=== PATIENT | female | born 1960 | race Caucasian/White ===

== ENCOUNTER 2020-08-05 19:18 | Emergency (ER) | payer SELFPAY ==
[2020-08-05 19:20] VITALS: BP 157/83; PULSE 100; RESP 20; TEMP 36.9; O2SAT 98
--- NOTE | 2020-08-05 19:42 | ED.DENTAL ---
HPI - Dental/Oral General Chief complaint: Dental/Oral Stated complaint: Infection in mouth Time Seen by Provider: 08/05/20 19:20 Source: patient Mode of arrival: ambulatory Limitations: no limitations History of Present Illness HPI Narrative: 59-year-old woman comes in today complaining of 2 days of pain in her lower jaw beneath her front teeth. Patient states that there was swelling in her gums and she has pain throughout her jaw causes her to have headache. She states it is difficult for her to eat because of the discomfort. She has had no fever, vomiting or difficulty swallowing. She states that the swollen area in her gums popped earlier today and pus came out. MD Complaint: tooth pain Teeth map: 1. Apical lesion Onset (ago): day(s) (2) Duration: constant Severity: severe Relieving factors: nothing Exacerbating factors: chewing and cold Context: poor dental care Associated symptoms: gum swelling Treatment prior to arrival: oral analgesic Related Data Allergies Allergy/AdvReac Type Severity Reaction Status Date / Time No Known Allergies Allergy Verified 08/05/20 19:32 Review of Systems Review of Systems: All systems reviewed & are unremarkable except as noted in HPI and below Constitutional: Constitutional: Denies chills and Denies fever(s) ENT: Denies dysphagia, Denies nasal congestion and Denies sore throat Musculoskeletal: Musculoskeletal: Denies arthralgias and Denies joint swelling Integumentary/Breasts: Skin/Breast: Denies pruritus, Denies erythema and Denies rash Neurologic: Reports headache(s) and Denies focal weakness Hematologic/Lymphatic: Hematologic/Lymphatic: Denies easy bleeding and Denies easy bruising Allergic/Immunologic: Allergic/Immunologic: Reports lip swelling, Denies throat swelling and Denies tongue swelling [facility] Past Medical History Medical History (Updated 08/05/20 @ 19:54 by Pollo Potter MD) Mitral valve prolapse Tubal Surgical History Surgical History (Updated 08/05/20 @ 19:51 by Pollo Potter MD) History of Hx of tubal ligation Social History Social History Smoking status: Former smoker Substance use: never Living arrangements: with family Exam Const: General: healthy appearing and alert Orientation/consciousness: patient oriented x3 Limitations: no limitations Other: moderate acute distress. HENMT: Ears: external ears normal, TM's normal bilaterally and EAC's normal General nose exam: Normal nares present Face and sinus: normal facial exam Mouth: Yes moist mucous membranes Throat: posterior oropharynx normal Other: buccal gingival swelling of the lower incisors. Tenderness palpation of the chin and lower lip. Minimal external swelling and no external erythema. Eyes: Conjunctivae: conjunctivae normal Pupils: Equal, round and reactive pupils present EOM: EOMs intact bilaterally Resp: Effort & Inspection: normal respiratory effort and not labored Auscultation: clear to auscultation bilaterally, no rales, no rhonchi and no wheezes Cardio: Rate: regular rate Rhythm: regular rhythm Heart sounds: no murmurs Skin: General skin exam: normal color, no jaundice and no pallor Rashes: no rashes Neuro: General: patient oriented x3, moves all extremities, no focal motor deficits and CN's II-XI intact bilaterally Speech: normal speech Gait exam (Neuro): Normal gait present Extrem: General: normal to inspection and no clubbing, cyanosis or edema Psych: Appearance: grossly normal and well kempt Mental Status: mental status grossly normal Affect: normal affect Attitude: cooperative Thought content: Yes Normal thought content present Course Vital Signs Vital signs: Vital Signs Temperature 36.9 C 08/05/20 19:20 Pulse Rate 100 08/05/20 19:20 Respiratory Rate 20 08/05/20 19:20 Blood Pressure 157/83 H 08/05/20 19:20 Pulse Oximetry 98 08/05/20 1
[2020-08-05 20:05] VITALS: BP 144/72; PULSE 102; RESP 18; O2SAT 98
== END 2020-08-05 20:07 | disposition home or self-care (01) ==
PROVIDERS: Emergency Provider Emergency Medicine
DX: K04.7 Periapical abscess without sinus (principal)
CPT/HCPCS: 99283

== ENCOUNTER 2020-11-13 11:44 | Outpatient (NON) | payer SELFPAY | END 2020-11-13 11:45 | disposition home or self-care (01) | LOC: CHSLAB 11:46 | PROVIDERS: Visit Provider Nurse Practitioner Family | DX: N39.0 Urinary tract infection, site not specified (principal) | CPT/HCPCS: 87077; 87086; 87088; 87186 ==

== ENCOUNTER 2020-11-26 10:29 | Outpatient (CLI) | payer SELFPAY ==
[2020-11-26 10:50] LABS: Basophils Absolute Auto 0.06 K/mm3 (0.00-0.10); Basophils Percent Auto 0.5 % (0.0-1.0); Eosinophils Absolute Auto 0.11 K/mm3 (0.02-0.50); Hematocrit 41.4 % (35.0-49.0); Hemoglobin 13.9 g/dL (12.0-15.0); Immature Granulocyte Absolute 0.06 K/mm3 (0.00-0.00); Immature Granulocyte Percent A 0.5 % (0.0-0.0); Lymphocytes Absolute Auto 2.46 K/mm3 (1.10-4.50); Lymphocytes Percent Auto 21.3 % (18.0-42.0); Mean Corpuscular HGB Conc 33.6 g/dL (32.0-36.0); Mean Corpuscular Hemoglobin 31.4 pg (27.0-31.0); Mean Corpuscular Volume 93.7 fL (78.0-102.0); Mean Platelet Volume 9.5 fl (9.2-11.8); Monocytes Absolute Auto 0.64 K/mm3 (0.10-0.90); Monocytes Percent Auto 5.5 % (2.0-11.0); Neutrophils Absolute Auto 8.2 K/mm3 (1.7-7.2); Neutrophils Percent Auto 71.2 % (50.0-70.0); Platelet Count Result 249 K/mm3 (150-420); Red Blood Count 4.42 M/mm3 (4.20-5.40); Red Cell Distribution Width 13.7 % (11.6-14.4); White Blood Count 11.6 K/mm3 (4.8-10.8)
[2020-11-26 11:46] LABS: Alanine Aminotransferase 36 U/L (14-59); Albumin Level 4.4 g/dL (3.4-5.0); Alkaline Phosphatase 101 U/L (46-116); Anion Gap 12 mmol/L (8-16); Aspartate Amino Transferase 18 U/L (15-37); Bilirubin,Total 0.5 mg/dL (0.00-1.00); Blood Urea Nitrogen 17 mg/dL (7-18); Carbon Dioxide 26 mmol/L (21-32); Chloride 103 mmol/L (98-108); Cholesterol 248 mg/dL (0-200); Estimated Glomerular Filt Rate > 60; Glucose 89 mg/dL (70-99); HDL Direct 55 mg/dL (40-60); LDL Cholesterol Calculated 182 mg/dL (<130); Osmolality Calculated 292 mOsm/kg (285-295); Sodium 141 mmol/L (136-145); Total Protein 7.5 g/dL (6.4-8.2); Triglycerides 55 mg/dL (0-150)
== END 2020-11-26 10:30 | disposition home or self-care (01) ==
LOC: CHSLAB 10:33
PROVIDERS: PCP Family Medicine; Visit Provider Nurse Practitioner Family
DX: I34.1 Nonrheumatic mitral (valve) prolapse (principal); Z20.2 Contact with and (suspected) exposure to infections with a predominantly sexual mode of transmission; N39.0 Urinary tract infection, site not specified; G43.009 Migraine without aura, not intractable, without status migrainosus
CPT/HCPCS: 36415; 80053; 80061; 85025; 87491; 87591; 87661

== ENCOUNTER 2021-04-22 11:37 | Emergency (ER) | payer SELFPAY ==
[2021-04-22 11:54] VITALS: BP 144/94; PULSE 86; RESP 18; TEMP 36.1; O2SAT 99
--- NOTE | 2021-04-22 12:02 | ED.EXTPRO ---
HPI - Extremity Problem General Chief complaint: Extremity Problem,Nontraumatic Stated complaint: fell on ice on back/leg pain on 04/21/21 Source: patient and RN notes reviewed Mode of arrival: ambulatory Limitations: no limitations History of Present Illness HPI Narrative: Patient fell on the ice 2 days ago. And now has pain in her bilateral calves. she said she had pain and bilateral calves this morning but since then it has completely resolved. She denies any erythema or swelling in her lower extremities. A friend talked to her about maybe having a blood clot she wanted to get that evaluated. She also has signs of COVID. She had body aches, cough, headache, chills, sore throat. She denies nausea vomiting. MD Complaint: extremity pain Onset (ago): day(s) (2) Pain Consistency: intermittent Location: left, right and lower extremity Quality: aching Radiation: none Relieving factors: nothing Exacerbating factors: nothing Associated symptoms: denies other symptoms Related Data Home Medications Medication Instructions Recorded Confirmed No Home Medications 04/22/21 04/22/21 Allergies Allergy/AdvReac Type Severity Reaction Status Date / Time No Known Allergies Allergy Verified 04/22/21 12:02 Review of Systems Review of Systems: See HPI for other symptoms of COVID. All systems reviewed & are unremarkable except as noted in HPI and below PMFSH Past Medical History Medical History Closed fracture of finger (11/16/15) Hordeolum eyelid (12/06/12) Mitral valve prolapse Perimenopausal disorder (05/11/12) Plantar fasciitis (05/11/12) Tubal Surgical History Surgical History H/O tubal ligation H/O: section History of appendectomy History of Hx of tubal ligation Social History Social History Smoking packs per day: 1 Smoking cigarettes per day: 20.0 Years smoked: 30 Smoking pack-years: 30.00 Smoking status: Former smoker Alcohol intake: current Alcohol use details: social Substance use: never Substance use type: does not use Additional living arrangements comments: with 2 sons Additional occupation/education comments: self-employed. Gender identity (if verbalized by the patient): Female Exam Const: General: healthy appearing and no acute distress Nutritional Appearance: well nourished Orientation/consciousness: patient oriented x3 Other: Female nurse in room during examination. HENMT: Head: normal to inspection Ears: external ears normal Eyes: Conjunctivae: conjunctivae normal Pupils: Equal, round and reactive pupils present EOM: EOMs intact bilaterally Neck: Neck: normal visual inspection Resp: Effort & Inspection: normal respiratory effort Auscultation: clear to auscultation bilaterally Cardio: Rate: regular rate Rhythm: regular rhythm GI: GI Palp: Yes Soft to palpation, No Tenderness to palpation present (GI) and No Guarding due to palpation present (GI) Auscultation: normal bowel sounds Back/Spine/Pelvis: Cervical Spine: cervical ROM normal Thoracic/Lumbar Spine: thoraco-lumbar ROM normal Skin: General skin exam: normal color Neuro: General: patient oriented x3, moves all extremities, no meningeal signs, no focal motor deficits and CN's II-XI intact bilaterally Speech: normal speech Gait exam (Neuro): Normal gait present Extrem: General: normal to inspection, capillary refill normal, no clubbing, cyanosis or edema, no pedal edema, no calf tenderness and normal gait Psych: Appearance: grossly normal and well kempt Mental Status: mental status grossly normal Affect: normal affect Attitude: cooperative Thought content: Yes Normal thought content present Course Vital Signs Vital signs: Vital Signs Temperature 36.1 C L 04/22/21 11:54 Pulse Rate 86 04/22
[2021-04-22 12:44] LABS: D Dimer 0.36 mg/L (0.19-0.50)
--- NOTE | 2021-04-22 12:55 | PC.NURSE ---
patient inpatient care manager rn in the room during assessment
[2021-04-22 13:27] LABS: SARS-CoV-2 RNA PCR Negative (Negative)
[2021-04-22 13:58] VITALS: BP 129/78; PULSE 78; RESP 16; O2SAT 98
== END 2021-04-22 13:59 | disposition home or self-care (01) ==
PROVIDERS: Emergency Provider Emergency Medicine; PCP Family Medicine
DX: Z20.822 Contact with and (suspected) exposure to COVID-19 (principal)
CPT/HCPCS: 36415; 85380; 99282; 99283; C9803; U0003; U0005

== ENCOUNTER 2022-05-09 15:45 | Outpatient (NON) | payer SELFPAY ==
[2022-05-09 15:55] LABS: Appearance Urine Clear (Clear); Bilirubin Urine Negative (Negative); Blood Urine 1+ (Negative); Glucose Urine UA Negative (Negative); Ketones Urine Negative (Negative); Leukocyte Esterase Ur 3+ LEU/UL (Negative); Nitrate Urine Negative (Negative); Protein Urine Negative (Negative); Specific Grav Ur <= 1.005 (1.010-1.020); Urobilinogen Urine 0.2 mg/dL (0.2-1.0)
[2022-05-09 16:11] LABS: Add Urine Microscopic? YES; Bacteria Urine 2+ /hpf; Color Urine Light Yellow (Yellow); RBC Urine 0-2 /hpf (0-2); Squamous Epithelial Cell Urine Few /hpf (Few); WBC Urine 16-20 /hpf (0-3)
== END 2022-05-09 15:46 | disposition home or self-care (01) ==
LOC: CHSLAB 15:46
PROVIDERS: PCP Nurse Practitioner Family; Visit Provider Nurse Practitioner Family
DX: R39.9 Unspecified symptoms and signs involving the genitourinary system (principal)
CPT/HCPCS: 81001; 87077; 87086; 87088; 87186

== ENCOUNTER 2024-06-13 13:41 | Outpatient (CLI) | payer OTHER, SELFPAY ==
--- NOTE | 2024-06-13 13:50 | ECG_ITS ---
Test Date: 2024-06-13 14:01:40 Measurements Intervals [place] Rate: 79 P: 74 WA: 124 QRS: 69 QRSD: 101 T: 66 QT: 395 QTc: 453 Interpretive Statements SINUS RHYTHM INCOMPLETE RIGHT BUNDLE BRANCH BLOCK [90+ ms QRS DURATION, TERMINAL R IN V1/V2, 40+ ms S IN I/aVL/V4/V5/V6] No previous ECG available for comparison Electronically Signed On 06-14-2024 15:29:25 [employer] by Jacinta Kumar M.D.
--- OUTSIDE RECORDS SUMMARY | 2024-06-13 15:05 | XMS_ITS | CONTINUITY OF CARE DOCUMENT ---
Author Name melvin charles Address Unknown Organization [facility] Address [address] [place] [address] Phone [phone] Care Team Providers Care Director Surgical Name Role Phone Juan R Alaniz MD Unavailable JAYNE WHITLEY MD Unavailable JAYNE WHITLEY MD Unavailable [phone] PROBLEMS Condition Status Date Provider Notes Chest pain-type to be determined active Re Alaniz MD Mitral valve prolapse active Juan R Valdez ENCOUNTERS Date Type Provider Location Encounter Diag nosis - In-person encounter Office Visit Juan R Alaniz MD [facility] Office Chest pain-type to b e determinedMitral valve prolapse VITAL SIGNS Date Observation Value Provider Body Mass Index (Ratio) 24.09 kg/m2 Dayo Alaniz MD blood pressure, diastolic 68 mm[Hg] Us shaina Alaniz MD blood pressure, systolic 110 mm[Hg] Re Alaniz MD pulse rate 66 /min Juan R Alaniz MD oxygen saturation, oximetry 98 % Juan R Alaniz MD respiratory rate E&M 16 /min Juan R thomson MD weight E&M 136 [lb_av] Juan R Alaniz MD height E&M 63 [in_i] Juan R Alaniz MD ALLERGIES No Known Drug Allergies HISTORY OF MEDICATION USE No Known Medication SOCIAL HISTORY Date Observation Value Provider smoking/tobacco cess ation, patient education and counseling yes Juan R Alaniz MD social history E&M Patient is a former smoker. Smoking History: Gretel zayas is a former smoker. Juan R Alaniz MD social history reviewed E&M revi ewed - no changes required Juan R Alaniz MD smoking status Former smoker Juan R Alaniz MD FAMILY HISTORY Family Member Condition Father Family History of Co ronary Artery Disease: TREATMENT PLAN Date Name Performer New Patient printed and faxed to [facility] and PCP:Will check echo Juan R Alaniz MD Date Name Complete Echo
--- OUTSIDE RECORDS SUMMARY | 2024-06-13 15:05 | XMS_ITS | Clinical Summary ---
Author Organization [facility] Address Counts include [address] beds at [address] [facility] [place] [address] Care Team Providers Care Antique Repairer Name Role Phone None, Provider MD Primary Care Provider Unavaila ble Allergies Active Allergy Reactions Criticality Noted Date Comments Tamsulosin Shortness of Breath High 01/11/2023 Medications No known medications Social History Tobacco Use Types Packs/Day Years Used Date Smoking Tobacco: Former Cigarettes Smokeless Tobacco: Never Tobacco Cessation:Counseling Given: Not Answered Alcohol Use Standard Drinks/Week Comments Not Currently 0 (1 standard drink = 0.6 oz pur e alcohol) Comments No Sex and Gender Information Value Date Recorded Sex Assigned at Not on file Legal Sex Female 5:14 PM CDT Gender Identity Not on file Sexual Orientation Not on file Last Filed Vital Signs Vital Sign Reading Time Taken Comments Blood Pressure 127/68 01/11/2023 5:24 PM CDT Pulse 58 01/11/2023 5:24 PM CDT Temperature 36.4 C (97.5 F) 01/11/2023 3:14 PM CDT Respiratory Rate 16 01/11/2023 3:14 PM CDT Oxygen Saturation 100% 01/11/2023 6:00 PM CDT Inhaled Oxygen Concentration - - Weight 68.5 kg (151 lb) 01/11/2023 3:14 PM CDT Height 160 cm (5' 3 ) 01/11/2023 3:14 PM CDT Body Mass Index 26.75 01/11/2023 3:14 PM CDT Plan of Treatment Health Maintenance Due Date Last Done Comments Cervical Cancer Screening Pa p Smear (Age 30 to 64) Every 3 Years 1962 Colorectal Cancer Screening Colonoscopy (10 Years) 1962 Annual Physical 1965 Hepatitis C 1980 Cervical Cancer Screening Pa p with HPV Testing (Age 30 to 64) Every 5 Years 1992 Cervical Cancer Screening with HPV 1992 Mammogram Screening 2002 DTaP, Tdap and Td Vaccines ( 1 - Tdap) 04/14/2012 04/13/2012 Zoster Vaccines (1 of 2) 2012 COVID-19 Vaccine ( - 2023-2 5 season) 2023 Influenza Adult (#1) 2024 RSV Immunization or 60+ Years (1 - 1-dose 75+ series) 2037 Meningococcal B Vaccine Aged Out No l onger eligible based on patient's age to complete this topic Meningococcal Vaccine Aged Out No [place] tal eligible based on patient's age to complete this topic Pneumococcal Vaccine: Pediat rics (0 to 5 Years) and At-Risk Patients (6 to 64 Years) Aged Out No longer eligi ble based on patient's age to complete this topic RSV Immunizations Under 20 Months Aged Out No longer eligible based on patient's age to complete this topic Care Teams Antique Repairer Relationship Specialty Start Date End Date None, Provider, MD PCP - General UNKNOWN PHYSICIAN SPECIALTY 04/10/22
== END 2024-06-13 13:42 | disposition home or self-care (01) ==
LOC: CHSCARD 13:45
PROVIDERS: PCP Nurse Practitioner Family; Visit Provider Internal Medicine Cardiovascular Disease
DX: I34.1 Nonrheumatic mitral (valve) prolapse (principal); I45.19 Other right bundle-branch block
CPT/HCPCS: 93005

== ENCOUNTER 2024-06-27 07:57 | Outpatient (CLI) | payer OTHER, SELFPAY ==
--- OUTSIDE RECORDS SUMMARY | 2024-06-27 08:07 | XMS_ITS | Data Portability ---
Author Organization DIMITRI JADERodrigo [facility] Address [address] [place] [address] Assessment No assessment recorded. Plan of Treatment Reminders Order Date Submit Date Provider Last Modified By Organization Details Last Modified Time Details Appointments None recorded. Lab pap, IG + CT/NG/TV + reflex HPV (16+18) 2014 015 [facility], [address], [address], [place], [address], 5 16:41:30 RPR (rapid plasma reagin), serum 2014 015 [facility], [address], [address], [place], [address], 5 09:16:37 HBsAg (hepatitis B surface Ag), EIA, serum 2014 015 [facility], [address], [address], [place], [address], 5 09:16:37 hepatitis C Ab, signal-to-c utoff, serum or plasma 2014 015 [facility], [address], [address], [place], [address], 5 09:16:36 HIV (1+O+2) Ab, serum 2014 015 [facility], [address] [place] [address], [address], [place], [address], 5 09:16:36 iron + total iron-bindin g capacity (TIBC), serum 2014 015 [facility], [address], [address], [place], [address], 5 08:55:30 ferritin, serum or plasma 2014 015 [facility], [address], [address], [place], [address], 5 08:55:31 CBC 2014 015 [email or web address] 1 [facility], [address], [address], [place], [address], 5 11:59:11 lipid panel, serum 2014 [facility], [address] [place], [place] [address], [address], [place], [address], 5 11:59:11 TSH, serum or plasma 2014 015 [facility], [address], [address], [place], [address], 5 11:59:11 CMP, serum or plasma 2014 015 [facility] 1 [facility], [address], [address], [place], [address], 5 11:59:11 Referral gastroenter ologist referral 2014 015 [email or web address] Not available 5 10:13:39 Procedures None recorded. Surgeries None recorded. Imaging MAMMO, screening, digital, bilateral 2014 015 [email or web address] Not available 5 15:21:58 Medication Orders None recorded. Patient TargetsNo targets recorded. Patient Instructions Encounter Date Encounter Id Patient Instructions Last Modified By Organization Details Last Modified Time 06/28/2014 [id number] hemochromatosis: care instructions nsuthan Not available 06/28/2014 15:00:12 Take meds as prescribed Healthy diet/ exercise nsuthan Not available 06/28/2014 15:00:13 12/14/2014 [id number] learning about breast cancer screening [email or web address] Not available 12/14/2014 11:00:56 Reason for Referral Referring Physician: Ran Dial, Internal Medicine, Encounter Date: 06/28/2014 Results Created Date Observation Date Name Description Value Unit Range Abnormal Flag Note LastModifiedBy Organization Detail LastModifiedTime 07/20/19 15 07/20/2014 CMP, serum or plasm a glucose, serum 98 mg/dL 65-99 Not Available [facility] ([facility]) [address] [place], [address], 07/20/2014 08:55:29 07/20/1907/20/2014 CMP, serum or plasm a BUN 17 mg/dL 6-24 Not Available [facility] ([facility]) [address] [place], [address], 07/20/2014 08:55:29 07/20/1907/20/2014 CMP, serum or plasm a creatinine, serum 0.83 mg/dL 0.57-1 .00 Not Available [facility]) [address] [place], [address], 07/20/2014 08:55:29 07/20/19 15 07/20/2014 CMP, serum or plasm a eGFR if nonafricn AM 82 mL/mi n/1.7 3 >59 Not Available [facility] ([facility]) [address] [place], [address], 07/20/2014 08:55:29 07/20/19 15 07/20/2014 CMP, serum or plasm a eGFR if africn AM 94 mL/mi n/1.7 3 >59 Not Available [facility] ([facility]) [address] [place], [address], 07/20/2014 08:55:29 07/20/19 15 07/20/2014 CMP, serum or plasm a BUN/creatini ne ratio 20 9-23 Not Available [facility] ([facility]) [address] [place], [address], 07/20/2014 08:55:29 07/20/19 15 07/20/2014 CMP, serum or plasm a sodium, serum 141 mmol/ L 134-14 4 Not Available [facility] ([facility]) [address] [place], [address], 07/20/2014 08:55:29 07/20/19 15 07/20/2014 CMP, serum or plasm a potassium, serum 4.5 mmol/ L 3.5-5. 2 Not Available [facility] ([facility]) [address] [place], [address], 07/20/2014 08:55:29 07/20/19 15 07/20/2014 CMP, serum or plasm a chloride, serum 101 mmol/ L 97-108 Not Available [facility] ([facility]) [address] [place], [address], 07/20/2014 08:55:29 07/20/1907/20/2014 CMP, serum or plasm a carbon dioxide, total 24 mmol/ L 18-29 Not Available [facility] ([facility]) [address] [place], [address], 07/20/2014 08:55:29 07/20/1907/20/2014 CMP, serum or plasm a calcium, serum 9.2 mg/dL 8.7-10 .2 Not Available [facility] ([facility]) [address] [place], [address], 07/20/2014 08:55:29 07/20/19 15 07/20/2014 CMP, serum or plasm a protein, total, serum 6.7 g/dL 6.0-8. 5 Not Available [facility] ([facility]) [address] [place], [address], 07/20/2014 08:55:29 07/20/19 15 07/20/2014 CMP, serum or plasm a albumin, serum 4.7 g/dL 3.5-5. 5 Not Available [facility] ([facility]) [address] [place], [address], 07/20/2014 08:55:29 07/20/1907/20/2014 CMP, serum or plasm a globulin, total 2.0 g/dL 1.5-4. 5 Not Available [facility] ([facility]) [address] [place], [address], 07/20/2014 08:55:29 07/20/1907/20/2014 CMP, serum or plasm a A/G ratio 2.4 1.1-2. 5 Not Available [facility] ([facility]) [address] [place], [address], 07/20/2014 08:55:29 07/20/1907/20/2014 CMP, serum or plasm a bilirubin, total <0.2 mg/dL 0.0-1. 2 Not Available [facility] ([facility]) [address] [place], [address], 07/20/2014 08:55:29 07/20/1907/20/2014 CMP, serum or plasm a alkaline phosphatase, S 86 IU/L 39-117 Not Available [facility] ([facility]) [address] [place], [address], 07/20/2014 08:55:29 07/20/1907/20/2014 CMP, serum or plasm a AST (SGOT) 22 IU/L 0-40 Not Available [facility] ([facility]) [address] [place], [address], 07/20/2014 08:55:29 07/20/19 15 07/20/2014 CMP, serum or plasm a ALT (SGPT) 20 IU/L 0-32 Not Available [facility] ([facility]) [address] [place], [address], 07/20/2014 08:55:29 07/20/19 15 07/20/2014 CBC WBC 6.3 x10e3 /uL 3.4-10 .8 Not Available [facility] ([facility]) [address] [place], [address], 07/20/2014 08:55:29 07/20/19 15 07/20/2014 CBC RBC 4.64 x10e6 /uL 3.77-5 .28 Not Available [facility] ([facility]) [address] [place], [address], 07/20/2014 08:55:29 07/20/19 15 07/20/2014 CBC hemoglobin 14.2 g/dL 11.1-1 5.9 Not Available [facility] ([facility]) [address] [place], [address], 07/20/2014 08:55:29 07/20/1907/20/2014 CBC hematocrit 42.8 % 34.0-4 6.6 Not Available [facility] ([facility]) [address] [place], [address], 07/20/2014 08:55:29 07/20/1907/20/2014 CBC MCV 92 fL 79-97 Not Available [facility] ([facility]) [address] [place], [address], 07/20/2014 08:55:29 07/20/1907/20/2014 CBC MCH 30.6 pg 26.6-3 3.0 Not Available [facility] ([facility]) [address] [place], [address], 07/20/2014 08:55:29 07/20/1907/20/2014 CBC MCHC 33.2 g/dL 31.5-3 5.7 Not Available [facility] ([facility]) [address] [place], [address], 07/20/2014 08:55:29 07/20/19 15 07/20/2014 CBC RDW 13.9 % 12.3-1 5.4 Not Available [facility] ([facility]) [address] [place], [address], 07/20/2014 08:55:29 07/20/19 15 07/20/2014 CBC platelets 241 x10e3 /uL 150-37 9 Not Available [facility] ([facility]) [address] [place], [address], 07/20/2014 08:55:29 07/20/1907/20/2014 lipid panel , serum cholesterol, total 225 mg/dL 100-19 9 high Not Available [facility] ([facility]) [address] [place], [address], 07/20/2014 08:55:30 07/20/1907/20/2014 lipid panel , serum triglyceride s 65 mg/dL 0-149 Not Available [facility] ([facility]) [address] [place], [address], 07/20/2014 08:55:30 07/20/1907/20/2014 lipid panel , serum HDL cholesterol 69 mg/dL >39 ACCOR DING TO ATP-I II GUIDE LINES , HDL-C >59 MG/DL IS CONSI DERED A NEGAT SWETA RISK FACTO R FOR CHD. Not Available [facility] ([facility]) [address] [place], [address], 07/20/2014 08:55:30 07/20/1907/20/2014 lipid panel , serum VLDL cholesterol jacquelyn 13 mg/dL 5-40 Not Available [facility] ([facility]) [address] [place], [address], 07/20/2014 08:55:30 07/20/19 15 07/20/2014 lipid panel , serum LDL cholesterol calc 143 mg/dL 0-99 high Not Available [facility] ([facility]) [address] [place], [address], 07/20/2014 08:55:30 07/20/19 15 07/20/2014 iron + total iron- octavio ng capac ity (TIBC ), serum iron bind.cap.(TI BC) 284 ug/dL 250-45 0 Not Available [facility] ([facility]) [address] [place], [address], 07/20/2014 08:55:30 07/20/19 15 07/20/2014 iron + total iron- octavio ng capac ity (TIBC ), serum UIBC 202 ug/dL 150-37 5 Not Available [facility] ([facility]) [address] [place], [address], 07/20/2014 08:55:30 07/20/19 15 07/20/2014 iron + total iron- octavio ng capac ity (TIBC ), serum iron, serum 82 ug/dL 35-155 Not Available [facility] ([facility]) [address] [place], [address], 07/20/2014 08:55:30 07/20/1907/20/2014 iron + total iron- octavio ng capac ity (TIBC ), serum iron saturation 29 % 15-55 Not Available [facility] ([facility]) [address] [place], [address], 07/20/2014 08:55:30 07/20/19 15 07/20/2014 TSH, serum or plasm a TSH 1.810 uIU/m L 0.450- 4.500 Not Available [facility] ([facility]) [address] [facility], [place], [address], 07/20/2014 08:55:31 07/20/19 15 07/20/2014 ming tin, serum or plasm a ferritin, serum 162 NG/mL 15-150 high Not Available [facility] ([facility]) [address] [facility], [place], [address], 07/20/2014 08:55:31 12/15/19 15 12/15/2014 HIV (1+O+ 2) Ab, serum HIV 1/O/2 abs-index value <1.00 <1.00 INDEX VALUE : SPECI MEN REACT IVITY RELAT SWETA TO THE NEGAT SWETA CUTOF F. Not Available [facility] ([facility]) [address] [facility], [place], [address], 12/15/2014 09:16:36 12/15/19 15 12/15/2014 HIV (1+O+ 2) Ab, serum HIV 1/O/2 abs, qual NON REACTI VE non reacti ve Not Available [facility] ([facility]) [address] [facility], [place], [address], 12/15/2014 09:16:36 12/15/19 15 12/14/2014 hepat itis C Ab, signa l-to- cutof f, serum or plasm a comment: COMMEN T NON REACT SWETA HCV ANTIB SUMEET SCREE N IS CONSI STENT WITH NO HCV INFEC TION, UNLES S RECEN T INFEC TION IS SUSPE CTED OR OTHER EVIDE NCE EXIST S TO INDIC ATE HCV INFEC TION. Not Available [facility] ([facility]) [address] [facility], [place], [address], 12/15/2014 09:16:36 12/15/19 15 12/15/2014 hepat itis C Ab, signa l-to- cutof f, serum or plasm a HCV Ab 0.1 S/co_ ratio 0.0-0. 9 Not Available [facility] ([facility]) [address] [facility], [place], [address], 12/15/2014 09:16:36 12/15/19 15 12/15/2014 RPR (rapi d plasm a reagi n), serum RPR NON REACTI VE non reacti ve Not Available [facility] ([facility]) [address] [facility], [place], [address], 12/15/2014 09:16:37 12/15/19 15 12/15/2014 HBsAg (hepa titis B surfa ce Ag), EIA, serum HBsAg screen NEGATI VE negati ve Not Available [facility] ([facility]) [address] [facility], [place], [address], 12/15/2014 09:16:37 12/15/19 15 12/19/2014 pap, IG + CT/NG /TV + refle x HPV (16+1 8) chlamydia, nuc. acid amp NEGATI VE negati ve Not Available [facility] ([facility]) [address] [place], [address], 12/21/2014 16:41:30 12/15/19 15 12/19/2014 pap, IG + CT/NG /TV + refle x HPV (16+1 8) gonococcus, nuc. acid amp NEGATI VE negati ve Not Available [facility] ([facility]) [address] [place], [address], 12/21/2014 16:41:30 12/15/19 15 12/20/2014 pap, IG + CT/NG /TV + refle x HPV (16+1 8) diagnosis: COMMEN T NEGAT SWETA FOR INTRA EPITH ELIAL LESIO N AND MALIG NICOLLE . Not Available [facility] ([facility]) [address] [place], [address], 12/21/2014 16:41:30 12/15/19 15 12/20/2014 pap, IG + CT/NG /TV + refle x HPV (16+1 8) specimen adequacy: LISSETTE Pham SATIS FACTO RY FOR EVALU ATION . ENDOC ERVIC AL AND/O R SQUAM OUS METAP LASTI C CELLS (ENDO CERVI JACQUELYN COMPO NENT) ARE PRESE NT. Not Available [facility] ([facility]) [address] [facility], [place], [address], 12/21/2014 16:41:30 12/15/19 15 12/20/2014 pap, IG + CT/NG /TV + refle x HPV (16+1 8) clinician provided ICD9: LISSETTE Pham V72.3 1 ; TREYI TAMMI GYNEC OLOGI JACQUELYN EXAMI NATIO N Not Available [facility] ([facility]) [address] [place], [address], 12/21/2014 16:41:30 12/15/19 15 12/20/2014 pap, IG + CT/NG /TV + refle x HPV (16+1 8) performed by: ARTURO WRIGHT (ASCP ) Not Available [facility] ([facility]) [address] [place], [address], 12/21/2014 16:41:30 12/15/19 15 12/20/2014 pap, IG + CT/NG /TV + refle x HPV (16+1 8) . . Not Available [facility] ([facility]) [address] [place], [address], 12/21/2014 16:41:30 12/15/19 15 12/20/2014 pap, IG + CT/NG /TV + refle x HPV (16+1 8) note: LISSETTE Pham THE PAP SMEAR IS A SCREE DANIELLE TEST DESIG RONNIE TO AID IN THE DETEC TION OF MARÍA ELENA LIGNA NT AND MALIG NANT CONDI TIONS OF THE UTERI NE CERVI X. IT IS NOT A DIAGN OSTIC PROCE DURE AND SHOUL D NOT BE USED THE SOLE MEANS OF DETEC TING CERVI JACQUELYN CANCE R. BOTH FALSE -POSI TIVE AND FALSE -NEGA TIVE REPOR TS DO OCCUR . Not Available [facility] ([facility]) [address] [facility], [place], [address], 12/21/2014 16:41:30 12/15/19 15 12/20/2014 pap, IG + CT/NG /TV + refle x HPV (16+1 8) test methodology: COMMEN T THIS LIQUI D BASED THINP REP(R ) PAP TEST WAS PEDRO PABLO TRUJILLO WITH THE USE OF AN IMAGE GUIDE José Miguel Valencia. Not Available [facility] ([facility]) [address] [facility], [place], [address], 12/21/2014 16:41:30 12/15/19 15 12/21/2014 pap, IG + CT/NG /TV + refle x HPV (16+1 8) HPV, high-risk NEGATI VE negati ve THIS HIGH- RISK HPV TEST DETEC TS THIRT EEN HIGH- RISK TYPES (16/1 8/31/ 33/35 /39/4 5/51/ 52/56 /58/5 ) WITHO UT DIFFE RENTI ATION . Not Available [facility] ([facility]) [address] [facility], [place], [address], 12/21/2014 16:41:30 12/15/19 15 12/21/2014 pap, IG + CT/NG /TV + refle x HPV (16+1 8) trich vag by GUNJAN NEGATI VE negati ve Not Available [facility] ([facility]) [address] [facility], [place], [address], 12/21/2014 16:41:30 07/22/19 15 07/18/2014 MAMMO , pedro pablo reynolds, digit al, bilat eral No observ ation record ed. Not Available 2014 14:48:50 01/20/20 15 01/17/2015 echoc ardio gram No observ ation record ed. nsuthan Not Available 2014 14:47:25 Result Notes None recorded. Problems No Known Problems Procedures Surgical History Date Name Laterality Status Provider Name and Address Organization Details Recorded Time 12/15/19 15 Date of Last Pap Smear completed [facility] 12/29/2014 11:22:29 Appendectomy completed Aria ERIN Cabrera [facility] 06/28/2014 14:15:11 Arthroscopic Surgery completed Aria Deborah [facility] 06/28/2014 14:15:11 Tubal Ligation completed Lawtonlori Cabrera [facility] 06/28/2014 14:15:11 Caesarean Section completed Law[place] Deborah [facility] 06/28/2014 14:15:11 Imaging Results Imaging Date Name Status LastModified by Organization Details LastModified Time 07/18/2014 MAMMO, screening, digital, bilateral completed [email or web address] Information not available 07/21/2014 14:48:50 01/17/2015 echocardiogram completed [email or web address] Informatio n not available 01/19/2015 14:47:25 Procedure Notes None recorded. Medical Equipment None Reported. Allergies Allergen ID Allergen Name Allergen Category Reaction Reaction Severity Criticality Documentation Date Start Date Code Code System Note Provider Name and Address Organization Details Recorded Time 94457 black walnut food other severe Not available 06/28/2014 93454 UNK black out Not Available Not Available Not Available Medications Not known to be on any medication Vitals Date Recorded Body weight Body height Body mass index (BMI) Systolic blood pressure Diastolic blood pressure Provider Name and Address Organization Details Last Updated DateTime 12/14/2014 16572.52 417 g 160.02 cm 25 kg/m2 128 mm[Hg] 80 mm[Hg] [facility] 5 09:28:38 Date Recorded Body height Body mass index (BMI) Body weight Systolic blood pressure Diastolic blood pressure Provider Name and Address Organization Details Last Updated DateTime 12/29/2014 160.02 cm 24.6 kg/m2 43670.98 0193 g 120 mm[Hg] 82 mm[Hg] [facility] 5 11:22:30 Date Recorded Respiratory rate Oxygen saturation Oxygen saturation in Arterial blood by Pulse oximetry Body weight Heart rate Body mass index (BMI) Body height Body temperature Systolic blood pressure Diastolic blood pressure Provider Name and Address Organization Details Last Updated DateTime 5 12 /min 100 % 100 % 73553.5 87893 g 76 /min 24.3 kg/m2 160.02 cm 98 [degF] 110 mm[Hg] 80 mm[Hg] Aria Cabrera [place] [facility] 5 14:15:11 Social History Question Answer Notes LastModified by Organizat ion Details LastModified Time Tobacco Smoking Status Former Smoker Quit 1998 Daphney Purvis [place], [place] - [facility] 12/14/2014 10:07:48 What Is Your Level Of Alcohol Consumption? Occasional [email or web address] Information not available 06/28/2014 Is Blood Transfusion Acceptable In An Emergency? Yes Information not available 12/14/2014 What Is Your Level Of Caffeine Consumption? Heavy Information not available 12/14/2014 How Much Tobacco Do You Chew? 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 REGULAR Information not available 12/14/2014 Education 2 Year College Information not available 12/14/2014 Live Alone Or With Others? With Others Information not available 12/14/2014 How Many Children Do You Have? 4 Information not available 12/14/2014 Performs Monthly Self-breast Exam? Yes Sometimes Information not available 12/14/2014 Do You Use Protection During Sex? No Information not available 12/14/2014 What Is Your Relationship Status? Information not available 12/14/2014 Seat Belts Used Routinely Yes Information not available 12/14/2014 Are You Sexually Active? Yes Information not available 12/14/2014 General Stress Level Medium Information not available 12/14/2014 Do You Use Sunscreen Routinely? No Information not available 12/14/2014 Sex: Unknown Functional Status Question Answer Note LastModified by Organization D etails LastModified Time What is your exercise level? Moderate Information not available 12/14/2014 Mental Status None recorded. Family History Relationship Description Onset Age of this Age Resolved Age Notes LastModified by Organization Details LastModified Time Father Heart disease [place] Not available 2014 11:22:30 Father Hypertensive disorder [place] Not available 2014 11:22:30 Father Diabetes mellitus [place] Not available 2014 11:22:30 Mother Heart disease [place] Not available 2014 11:22:30 Mother Hypertensive disorder [place] Not available 2014 11:22:30 Mother Diabetes mellitus [place] Not available 2014 11:22:30 Mother Hypercholest erolemia [place] Not available 2014 11:22:30 Paternal Grandmother Osteoporosis [place] Not available 12/29/2014 11:22:30 Maternal Grandmother Heart disease [place] Not available 2014 11:22:30 Medical History Condition Response Heart Problems Y Arthritis Y Headaches Y Gynecological History Statement/Question Response Abnormal Pap N On BCP's at Conception? N STIs/STDs N HPV Vaccine N Most Recent Mammogram Age at Menarche 14 Current Control Method Tubal Ligat ion Age at First Child 26 If Post Menopausal, Age at Menopause 50 Sexually Active? Y Date of Last Pap Smear 12/14/2014 Sexual Problems? N LMP Obstetrics History GPAL:G 6 P 4 0 2 4 Type Value Multiple Births 0 Full Term 4 Induced 0 Spontaneous 1 Living 4 Ectopics 1 Total 6 Immunizations Vaccine Type Date Status Note Provider Nam e and Address Organization Details Recorded Time tetanus toxoid, adsorbed 04/13/2012 completed Sherman Dial MD Attn: [address] [place], [address], [facility] 06/28/2014 14:52:07 Past Encounters Encounter ID Performer Location Encounter Start Date Encounter Closed Date Diagnosis/Indication Diagnosis SNOMED-CT Code Diagnosis ICD10 Code Diagnosis Note [id number] [facility] (Adult Med) [address] [place] [address] 06/28/2014 13:34:02 06/28/2014 15:51:12 Adult health examination [id number] very small umbilical hernia-obs erve for now Family his tory of hemochromatosis 568546922 Screening for malignant neoplasm of colon 326575679 Screening mammography [id number] [facility] ([employer]) [address] [place] [address] 12/14/2014 09:01:31 12/14/2014 10:48:14 Gynecologic examination 26148996 Normal female exam. Pt. gets fasting blood work with Dr. Baires. Venereal d isease screening [id number] RTO 2 weeks for results Screening for malignant neoplasm of breast 313776602 Normal mammogram done 06/2014 Screening for malignant neoplasm of colon 384317891 Pt. had a normal colonoscop y 07/2014 [id number] ERIN Corea ([employer]) [address] [place] [address] 12/29/2014 11:10:49 12/29/2014 12:26:00 Gynecologic examination 45945576 Pap was normal with negative hr-HPV, dwp. RTO PRN + 1 year for AE Venereal d isease screening 289248127 Vaginal culture and STD panel were completely negative. Individual test results d/w pt. Sample condoms given. Health Concerns Section Related Observation LastModified by Organization Detai ls LastModified Time None Recorded Concern Status LastModified by Organization Details LastModified Time None Recorded Advance Directives Directive None Recorded Payers Encounter Date Sequence Insurance Name Policy Number Policy [place] Covered Member ID [place] Member ID Guarantor Name 06/28/2014 1 [facility] (MEDICAID HMO) Lalita Cannon [id number] 12/14/2014 1 [facility] (MEDICAID HMO) Lalita Cannon [id number] 12/29/2014 1 [facility] (MEDICAID HMO) Lalita Cannon [id number] Notes Date Note Type Note Provider Name and Address Organization Details Recorded Time 12/29/2014 text/html Pt. presents for results of pap and STD testing done at her AE. She has no complaints. Daphney Purvis [facility], [place] - [facility] 12/29/2014 12:42:01 OBGyn Episode Ob Episode Information Episode Created Date Number of Fetuses Patient Bloodtype Patient rh Status Prepregnancy Weight lbs Domestic Partner Domestic Partner Phone Father Name Hospice Bereavement Coordinator Status 12/15/19 15 1 CLOSED Fetus Data First Name Last Name Admitted to NICU Weight (g) Sex Living Outcome Pediatric Complications Fetus ID Race Codes Race Delivery Type 2948.34 8 F Full Term [id number] Moshe Calculation Initial Moshe Date Initial Exam Date Initial Exam Provider Initial Ultrasound Date Last Menstrual Period Date Ultra Sound Weeks Gestation 0 Eighteen To Twenty Week Moshe Update Ultra Sound Date Fundal Height At Umbil Quickening Date Ultra Sound Latest Weeks Gestation Final Moshe Confirmed By Final Moshe Confirmed Date Final Moshe Date Ultra Sound Latest Days Gestation 0 0 Menstrual History Last Menstrual Date Menses Monthly On Bcp Conception Prior Menses Frequency Hcg Plus Date Menarche Onset Age Delivery Information Delivery Date Delivery Type Labor Anesthesia Weeks Gestation Incision Type Labor Labor Length Hrs Delivered By Post Complications Tubal Sterilization Discharge Date Comments 0 Discharge Information Feeding Method Contraceptive Method Maternal HG B and HCT Levels Ob Episode Information Episode Created Date Number of Fetuses Patient Bloodtype Patient rh Status Prepregnancy Weight lbs Domestic Partner Domestic Partner Phone Father Name Hospice Bereavement Coordinator Status 12/15/19 15 1 CLOSED Fetus Data First Name Last Name Admitted to NICU Weight (g) Sex Living Outcome Pediatric Complications Fetus ID Race Codes Race Delivery Type 3515.33 8 M Full Term [id number] Moshe Calculation Initial Moshe Date Initial Exam Date Initial Exam Provider Initial Ultrasound Date Last Menstrual Period Date Ultra Sound Weeks Gestation 0 Eighteen To Twenty Week Moshe Update Ultra Sound Date Fundal Height At Umbil Quickening Date Ultra Sound Latest Weeks Gestation Final Moshe Confirmed By Final Moshe Confirmed Date Final Moshe Date Ultra Sound Latest Days Gestation 0 0 Menstrual History Last Menstrual Date Menses Monthly On Bcp Conception Prior Menses Frequency Hcg Plus Date Menarche Onset Age Delivery Information Delivery Date Delivery Type Labor Anesthesia Weeks Gestation Incision Type Labor Labor Length Hrs Delivered By Post Complications Tubal Sterilization Discharge Date Comments 8 Discharge Information Feeding Method Contraceptive Method Maternal HG B and HCT Levels Ob Episode Information Episode Created Date Number of Fetuses Patient Bloodtype Patient rh Status Prepregnancy Weight lbs Domestic Partner Domestic Partner Phone Father Name Hospice Bereavement Coordinator Status 12/15/19 15 1 CLOSED Fetus Data First Name Last Name Admitted to NICU Weight (g) Sex Living Outcome Pediatric Complications Fetus ID Race Codes Race Delivery Type Demise [id number] Moshe Calculation Initial Moshe Date Initial Exam Date Initial Exam Provider Initial Ultrasound Date Last Menstrual Period Date Ultra Sound Weeks Gestation 0 Eighteen To Twenty Week Moshe Update Ultra Sound Date Fundal Height At Umbil Quickening Date Ultra Sound Latest Weeks Gestation Final Moshe Confirmed By Final Moshe Confirmed Date Final Moshe Date Ultra Sound Latest Days Gestation 0 0 Menstrual History Last Menstrual Date Menses Monthly On Bcp Conception Prior Menses Frequency Hcg Plus Date Menarche Onset Age Delivery Information Delivery Date Delivery Type Labor Anesthesia Weeks Gestation Incision Type Labor Labor Length Hrs Delivered By Post Complications Tubal Sterilization Discharge Date Comments 9 8 Discharge Information Feeding Method Contraceptive Method Maternal HG B and HCT Levels Ob Episode Information Episode Created Date Number of Fetuses Patient Bloodtype Patient rh Status Prepregnancy Weight lbs Domestic Partner Domestic Partner Phone Father Name Hospice Bereavement Coordinator Status 12/15/19 15 1 CLOSED Fetus Data First Name Last Name Admitted to NICU Weight (g) Sex Living Outcome Pediatric Complications Fetus ID Race Codes Race Delivery Type 4139.02 7 M Full Term [id number] Moshe Calculation Initial Moshe Date Initial Exam Date Initial Exam Provider Initial Ultrasound Date Last Menstrual Period Date Ultra Sound Weeks Gestation 0 Eighteen To Twenty Week Moshe Update Ultra Sound Date Fundal Height At Umbil Quickening Date Ultra Sound Latest Weeks Gestation Final Moshe Confirmed By Final Moshe Confirmed Date Final Moshe Date Ultra Sound Latest Days Gestation 0 0 Menstrual History Last Menstrual Date Menses Monthly On Bcp Conception Prior Menses Frequency Hcg Plus Date Menarche Onset Age Delivery Information Delivery Date Delivery Type Labor Anesthesia Weeks Gestation Incision Type Labor Labor Length Hrs Delivered By Post Complications Tubal Sterilization Discharge Date Comments 7 Discharge Information Feeding Method Contraceptive Method Maternal HG B and HCT Levels Ob Episode Information Episode Created Date Number of Fetuses Patient Bloodtype Patient rh Status Prepregnancy Weight lbs Domestic Partner Domestic Partner Phone Father Name Hospice Bereavement Coordinator Status 12/15/19 15 1 CLOSED Fetus Data First Name Last Name Admitted to NICU Weight (g) Sex Living Outcome Pediatric Complications Fetus ID Race Codes Race Delivery Type 3005.04 7 M Full Term [id number] Moshe Calculation Initial Moshe Date Initial Exam Date Initial Exam Provider Initial Ultrasound Date Last Menstrual Period Date Ultra Sound Weeks Gestation 0 Eighteen To Twenty Week Moshe Update Ultra Sound Date Fundal Height At Umbil Quickening Date Ultra Sound Latest Weeks Gestation Final Moshe Confirmed By Final Moshe Confirmed Date Final Moshe Date Ultra Sound Latest Days Gestation 0 0 Menstrual History Last Menstrual Date Menses Monthly On Bcp Conception Prior Menses Frequency Hcg Plus Date Menarche Onset Age Delivery Information Delivery Date Delivery Type Labor Anesthesia Weeks Gestation Incision Type Labor Labor Length Hrs Delivered By Post Complications Tubal Sterilization Discharge Date Comments 5 Discharge Information Feeding Method Contraceptive Method Maternal HG B and HCT Levels Ob Episode Information Episode Created Date Number of Fetuses Patient Bloodtype Patient rh Status Prepregnancy Weight lbs Domestic Partner Domestic Partner Phone Father Name Hospice Bereavement Coordinator Status 12/15/19 15 1 CLOSED Fetus Data First Name Last Name Admitted to NICU Weight (g) Sex Living Outcome Pediatric Complications Fetus ID Race Codes Race Delivery Type Ectopic [id number] Moshe Calculation Initial Moshe Date Initial Exam Date Initial Exam Provider Initial Ultrasound Date Last Menstrual Period Date Ultra Sound Weeks Gestation 0 Eighteen To Twenty Week Moshe Update Ultra Sound Date Fundal Height At Umbil Quickening Date Ultra Sound Latest Weeks Gestation Final Moshe Confirmed By Final Moshe Confirmed Date Final Moshe Date Ultra Sound Latest Days Gestation 0 0 Menstrual History Last Menstrual Date Menses Monthly On Bcp Conception Prior Menses Frequency Hcg Plus Date Menarche Onset Age Delivery Information Delivery Date Delivery Type Labor Anesthesia Weeks Gestation Incision Type Labor Labor Length Hrs Delivered By Post Complications Tubal Sterilization Discharge Date Comments Discharge Information Feeding Method Contraceptive Method Maternal HG B and HCT Levels
--- OUTSIDE RECORDS SUMMARY | 2024-06-27 08:07 | XMS_ITS | CONTINUITY OF CARE DOCUMENT ---
Author Name melvin charles Address Unknown Organization [facility] Address [address] [place] [address] Phone [phone] Care Team Providers Care Sox Analyst Name Role Phone Juan R Alaniz MD Unavailable JAYNE WHITLEY MD Unavailable JAYNE WHITLEY MD Unavailable PROBLEMS Condition Status Date Provider Notes Chest pain-type to be determined active Re Alaniz MD Mitral valve prolapse active Juan R Valdez ENCOUNTERS Date Type Provider Location Encounter Diag nosis - In-person encounter Office Visit Juan R Alaniz MD [facility] Office Chest pain-type to b e determinedMitral valve prolapse VITAL SIGNS Date Observation Value Provider Body Mass Index (Ratio) 24.09 kg/m2 Dayo Alaniz MD blood pressure, diastolic 68 mm[Hg] Us shaina Alaniz MD blood pressure, systolic 110 mm[Hg] Re Alaniz MD pulse rate 66 /min Juan R Alaniz MD oxygen saturation, oximetry 98 % Juan R Alnaiz MD respiratory rate E&M 16 /min Juan [...]
--- OUTSIDE RECORDS SUMMARY | 2024-06-27 08:07 | XMS_ITS | Clinical Summary ---
Author Organization [facility] Address Formerly [facility], [id number] [place] [address] Care Team Providers Care Senior Maintenance Technician Name Role Phone None, Provider MD Primary [...] age to complete this topic Care Teams Senior Maintenance Technician Relationship Specialty Start Date End Date None, Provider, MD PCP - General UNKNOWN PHYSICIAN SPECIALTY 04/10/22
[2024-06-27 08:27] LABS: Hematocrit 44.1 % (37.0-47.0); Hemoglobin 14.5 g/dL (12.0-15.0); Mean Corpuscular HGB Conc 32.9 g/dl (32-36); Mean Corpuscular Hemoglobin 30.5 pg (26-34); Mean Corpuscular Volume 92.8 fl (80-100); Mean Platelet Volume 9.8 fl (7.4-10.4); Platelet Count Result 243 k/mm3 (150-375); Red Blood Count 4.75 M/mm3 (4.2-5.4); Red Cell Distribution Width 13.7 % (11.5-14.5); White Blood Count 5.7 K/mm3 (4.5-10.0)
[2024-06-27 08:38] LABS: Alanine Aminotransferase 37 U/L (6-35); Albumin Level 4.7 g/dL (3.5-5.1); Alkaline Phosphatase 100 U/L (38-126); Anion Gap 8 mmol/L (4-12); Aspartate Amino Transferase 34 U/L (14-36); Bilirubin,Total 0.4 mg/dL (0.2-1.3); Blood Urea Nitrogen 19 mg/dL (7-17); Calcium 9.4 mg/dL (8.4-10.2); Carbon Dioxide 27 mmol/L (22-30); Chloride 104 mmol/L (98-107); Cholesterol 224 mg/dL (0-200); Estimated Glomerular Filt Rate > 60; Glucose 123 mg/dL (65-110); HDL Direct 52 mg/dL; Potassium 4.2 mmol/L (3.4-5.0); Sodium 139 mmol/L (137-145); Triglycerides 83 mg/dL (<150); Uric Acid 5.1 mg/dL (2.5-7.5)
[2024-06-27 08:40] LABS: Rheumatoid Factor < 12.0 IU/ML (<12)
[2024-06-27 08:49] LABS: LDL Cholesterol Direct 123 mg/dL
[2024-06-27 09:14] LABS: Hemoglobin A1C 5.8 % (<5.7)
[2024-06-27 09:25] LABS: Iron 110 ug/dL (37-170)
[2024-06-27 09:37] LABS: Percent Iron Saturation 37 % (20-50)
[2024-06-28 15:44] LABS: Anti Cyclic Citrullinated Pept <16 UNITS
== END 2024-06-27 07:58 | disposition home or self-care (01) ==
LOC: ANHLAB 07:59
PROVIDERS: PCP Nurse Practitioner Family; Visit Provider Nurse Practitioner Family
DX: Z13.1 Encounter for screening for diabetes mellitus (principal); Z00.00 Encounter for general adult medical examination without abnormal findings; Z76.89 Persons encountering health services in other specified circumstances; E61.1 Iron deficiency; E78.41 Elevated Lipoprotein(a); M25.40 Effusion, unspecified joint; M25.50 Pain in unspecified joint; E66.9 Obesity, unspecified; Z68.30 Body mass index [BMI] 30.0-30.9, adult; M79.676 Pain in unspecified toe(s); M79.89 Other specified soft tissue disorders
CPT/HCPCS: 36415; 80053; 80061; 82728; 83036; 83540; 83550; 84550; 85027; 86038; 86039; 86200; 86430

== ENCOUNTER 2024-07-12 14:51 | Outpatient (CLI) | payer OTHER, SELFPAY ==
--- NOTE | 2024-07-12 15:17 | ECHO_ITS ---
Patient Info Name: Lalita Cannon Age: 63 years : 1960 Gender: Female Ht: 62 in Wt: 160 lbs BSA: 1.81 m2 HR: 76 bpm BP: 152 / 83 mmHg Heart Rhythm: Sinus Rhythm Technical Quality: Good Exam Date: 07/12/2024 3:19 PM Exam Location: Echo Lab Patient Status: Outpatient Admit Date: 07/12/2024 Staff Ordering Physician: Kalina Ambriz APRN Dial Lathe Operator: Mayi Cartwright RDCS Attending Provider: Kalina Ambriz APRN Exam Type: CA echo doppler color flow Study Info Indications I34.1 - Nonrheumatic mitral (valve) prolapse Complete two-dimensional, color flow and Doppler transthoracic echocardiogram is performed. Summary 1. Complete two-dimensional, color flow and Doppler transthoracic echocardiogram is performed. 2. Left ventricular chamber dimension is normal. 3. Left ventricular systolic function is normal, estimated at 65-70%. 4. The left ventricular diastolic function is grade I diastolic dysfunction. 5. E/e' 8 is minimally elevated. 6. The mitral valve has mildly calcified annulus. 7. There is trace mitral valve regurgitation. 8. There is trace tricuspid valve regurgitation. 9. No pulmonary hypertension, estimated pulmonary arterial systolic pressure is 24 mmHg. 10. There is trace pulmonic regurgitation. Left Ventricle E/e' 8 is minimally elevated. Left ventricular chamber dimension is normal. Left ventricular systolic function is normal, estimated at 65-70%. The left ventricular diastolic function is grade I diastolic dysfunction. Right Ventricle Right ventricular systolic function is normal and with normal TAPSE 2.2 cm. Right ventricular chamber dimension is normal. Left Atria Left atrial chamber dimension is normal. Right Atria Right atrial chamber dimension is normal. Aortic Valve The aortic valve is trileaflet. There is no aortic valve stenosis. There is no aortic valve regurgitation. Pulmonic Valve There is trace pulmonic regurgitation. Mitral Valve The mitral valve has mildly calcified annulus. No mitral valve prolapse. There is no mitral valve stenosis. There is trace mitral valve regurgitation. Tricuspid Valve There is trace tricuspid valve regurgitation. No pulmonary hypertension, estimated pulmonary arterial systolic pressure is 24 mmHg. Pericardium/Pleural There is no pericardial effusion. Inferior Vena Cava Normal inferior vena cava with >50% collapse upon inspiration consistent with normal right atrial pressure, 5 mmHg. Aorta The aortic root size at the sinus of Valsalva is normal. Left Ventricular Outflow Tract Name Value Normal LVOT 2D LVOT Diameter 2.0 cm LVOT Doppler LVOT Peak Gradient 7 mmHg LVOT Mean Gradient 3 mmHg LVOT VTI 25 cm LVOT VTI/AV VTI Ratio 0.8 LVOT Stroke Volume 81 ml LVOT CO 5.9 l/min LVOT CI 3.4 l/min/m2 Pulmonic Valve Name Value Normal RVOT Doppler RVOT Peak Gradient 3 mmHg PV Doppler PV Peak Gradient 8 mmHg Mitral Valve Name Value Normal MV Doppler MV Decel [place] 294 cm/s2 MV PHT 79 ms MV Area (PHT) 2.8 cm2 4.0-5.0 MV Diastolic Function MV E Peak Velocity 80 cm/s MV A Peak Velocity 80 cm/s MV E/A 1.0 MV Decel Time 271 ms MV Annular TDI MV E/e' (Septal) 8.8 <=8.0 MV E/e' (Lateral) 7.8 <=8.0 MV E/e' (Average) 8.3 Tricuspid Valve Name Value Normal TV Regurgitation Doppler TR Peak Velocity 219 cm/s TR Peak Gradient 19 mmHg Estimated PAP/RSVP RA Pressure 5 mmHg <=5 PA Systolic Pressure 24 mmHg <36 RV Systolic Pressure 24 mmHg <36 Aorta Name Value Normal Ascending Aorta Ao Root Diameter (MM) 3.2 cm Ao Root Diam Index (MM) 1.8 cm/m2 Aortic Valve Name Value Normal AV Doppler AV Peak Velocity 158 cm/s AV Peak Gradient 10 mmHg AV Mean Gradient 5 mmHg AV VTI 31 cm AV Area (Cont Eq VTI) 2.6 cm2 >=3.0 AV Area (Cont Eq Krunal) 2.7 cm2 AV Regurgitation 2D LVOT Area 3.2 cm2 Ventricles Name Value Normal LV Dimensions 2D/MM IVS Diastolic Thickness (2D) 0.8 cm 0.6-1.0 LVID Diastole (2D) 4.6 cm 3.8-5.2 LVIW Diastolic Thickness (2D) 0.8 cm 0.6-0.9 LVID Systole (2D) 2.6 cm 2.2-3.5 LVOT Diameter 2.0 cm LV Mass (2D Cubed) 121.24 g 67.00-162.00 LV Mass Index (2D Cubed) 67 g/m2 43-95 Relative Wall Thickness (2D) 0.36 LV Fractional Shortening/Ejection Fraction 2D/MM LV Fractional Shortening (2D) 43 % 27-45 LV EF (2D Teicholz) 74 % 54-74 LV Diastolic Volume (4C MOD) 55 ml LV EF (4C MOD) 70 % LV Diastolic Volume (2C MOD) 54 ml LV EF (2C MOD) 75 % LV Diastolic Volume (BP MOD) 55 ml 46-106 LV Diastolic Volume Index (BP MOD) 30 ml/m2 29-61 LV Systolic Volume (BP MOD) 15 ml 14-42 LV Systolic Volume Index (BP MOD) 8 ml/m2 8-24 LV EF (BP MOD) 73 % 54-74 LV Diastolic Length (4C) 8.2 cm LV Systolic Length (4C) 6.6 cm LV Stroke Volume (4C MOD) 38 ml Atria Name Value Normal LA Dimensions LA Dimension (MM) 3.6 cm 2.7-3.8 LA Volume (4C A-L) 36 ml LA Volume (BP A-L) 41 ml RA Dimensions RA Area (4C) 17.4 cm2 <=18.0 Report Signatures
--- OUTSIDE RECORDS SUMMARY | 2024-07-12 16:21 | XMS_ITS | Data Portability ---
Author Organization [facility] Address [address] [place] [address] Assessment No assessment recorded. Plan of Treatment Reminders Order Date Submit Date Provider Last Modified By Organization Details Last Modified Time Details Appointments None recorded. Lab pap, IG + CT/NG/TV + reflex HPV (16+18) 2014 015 [facility], [address] [facility], [address], [place], [address], 5 16:41:30 RPR (rapid plasma reagin), serum 2014 015 [facility], [address] [facility], [address], [place], [address], 5 09:16:37 HBsAg (hepatitis B surface Ag), EIA, serum 2014 015 [facility], [address], [address], [place], [address], 5 09:16:37 hepatitis C Ab, signal-to-c utoff, serum or plasma 2014 015 [facility], [address], [address], [place], [address], 5 09:16:36 HIV (1+O+2) Ab, serum 2014 015 [facility], [address] [place], [place] [address], [address], [place], [address], 5 09:16:36 iron + total iron-bindin g capacity (TIBC), serum 2014 015 [facility], [address], [address], [place], [address], 5 08:55:30 ferritin, serum or plasma 2014 015 [facility], [address], [address], [place], [address], 5 08:55:31 CBC 2014 015 [email or web address] 1 [facility], [address], [address], [place], [address], 5 11:59:11 lipid panel, serum 2014 015 [email or web address], [address] [place], [place] [address], [address], [place], [address], 5 11:59:11 TSH, serum or plasma 2014 015 [facility], [address], [address], [place], [address], 5 11:59:11 CMP, serum or plasma 2014 015 [facility] 1 [facility], [address], [address], [place], [address], 5 11:59:11 Referral gastroenter ologist referral 2014 015 [email or web address] Not available 5 10:13:39 Procedures None recorded. Surgeries None recorded. Imaging MAMMO, screening, digital, bilateral 2014 015 [email or web address] Not available 5 15:21:58 Medication Orders None recorded. Patient TargetsNo targets recorded. Patient Instructions Encounter Date Encounter Id Patient Instructions Last Modified By Organization Details Last Modified Time 06/28/2014 [id number] hemochromatosis: care instructions nsuthan Not available 06/28/2014 15:00:12 Take meds as prescribed Healthy diet/ exercise nsuthan Not available 06/28/2014 15:00:13 12/14/2014 [id number] learning about breast cancer screening [email or web address] Not available 12/14/2014 11:00:56 Reason for Referral Referring Physician: Ran Dial, Internal Medicine, Encounter Date: 06/28/2014 Results Created Date Observation Date Name Description Value Unit Range Abnormal Flag Note LastModifiedBy Organization Detail LastModifiedTime 07/20/19 15 07/20/2014 CMP, serum or plasm a glucose, serum 98 mg/dL 65-99 Not Available [facility]) [address] [place], [address], 07/20/2014 08:55:29 07/20/1907/20/2014 CMP, serum or plasm a BUN 17 mg/dL 6-24 Not Available [facility] ([facility]) [address] [place], [address], 07/20/2014 08:55:29 07/20/1907/20/2014 CMP, serum or plasm a creatinine, serum 0.83 mg/dL 0.57-1 .00 Not Available [facility] ([facility]) [address] [place], [address], 07/20/2014 08:55:29 07/20/19 15 07/20/2014 CMP, serum or plasm a eGFR if nonafricn AM 82 mL/mi n/1.7 3 >59 Not Available [facility] ([facility]) [address] [place], [address], 07/20/2014 08:55:29 07/20/19 15 07/20/2014 CMP, serum or plasm a eGFR if africn AM 94 mL/mi n/1.7 3 >59 Not Available [facility] ([facility]) [address] [facility] [place] [place], [address], 07/20/2014 08:55:29 07/20/19 15 07/20/2014 CMP, serum or plasm a BUN/creatini ne ratio 20 9-23 Not Available [facility] ([facility]) [address] [facility] [place] [place], [address], 07/20/2014 08:55:29 07/20/19 15 07/20/2014 CMP, serum or plasm a sodium, serum 141 mmol/ L 134-14 4 Not Available [facility] ([facility]) [address] [facility] [place] [place], [address], 07/20/2014 08:55:29 07/20/19 15 07/20/2014 CMP, serum or plasm a potassium, serum 4.5 mmol/ L 3.5-5. 2 Not Available [facility] ([facility]) [address] [facility] [place] [place], [address], 07/20/2014 08:55:29 07/20/19 15 07/20/2014 CMP, serum or plasm a chloride, serum 101 mmol/ L 97-108 Not Available [facility] ([facility]) [address] [facility] [place] [place], [address], 07/20/2014 08:55:29 07/20/1907/20/2014 CMP, serum or plasm a carbon dioxide, total 24 mmol/ L 18-29 Not Available [facility] ([facility]) [address] [facility] [place], [address], 07/20/2014 08:55:29 07/20/1907/20/2014 CMP, serum or plasm a calcium, serum 9.2 mg/dL 8.7-10 .2 Not Available [facility] ([facility]) [address] [facility] [place], [address], 07/20/2014 08:55:29 07/20/19 15 07/20/2014 CMP, serum or plasm a protein, total, serum 6.7 g/dL 6.0-8. 5 Not Available [facility] ([facility]) [address] [facility] [place], [address], 07/20/2014 08:55:29 07/20/19 15 07/20/2014 CMP, serum or plasm a albumin, serum 4.7 g/dL 3.5-5. 5 Not Available [facility] ([facility]) [address] [facility] [place], [address], 07/20/2014 08:55:29 07/20/1907/20/2014 CMP, serum or plasm a globulin, total 2.0 g/dL 1.5-4. 5 Not Available [facility] ([facility]) [address] [place], [address], 07/20/2014 08:55:29 07/20/1907/20/2014 CMP, serum or plasm a A/G ratio 2.4 1.1-2. 5 Not Available [facility] ([facility]) [address] [facility] [place], [address], 07/20/2014 08:55:29 07/20/1907/20/2014 CMP, serum or plasm a bilirubin, total <0.2 mg/dL 0.0-1. 2 Not Available [facility] ([facility]) [address] [place], [address], 07/20/2014 08:55:29 07/20/1907/20/2014 CMP, serum or plasm a alkaline phosphatase, S 86 IU/L 39-117 Not Available [facility] ([facility]) [address] [place], [address], 07/20/2014 08:55:29 07/20/1907/20/2014 CMP, serum or plasm a AST (SGOT) 22 IU/L 0-40 Not Available [facility] ([facility]) [address] [facility] [place], [address], 07/20/2014 08:55:29 07/20/19 15 07/20/2014 CMP, serum or plasm a ALT (SGPT) 20 IU/L 0-32 Not Available [facility] ([facility]) [address] [facility] [place], [address], 07/20/2014 08:55:29 07/20/19 15 07/20/2014 CBC WBC 6.3 x10e3 /uL 3.4-10 .8 Not Available [facility] ([facility]) [address] [facility] [place], [address], 07/20/2014 08:55:29 07/20/19 15 07/20/2014 CBC RBC 4.64 x10e6 /uL 3.77-5 .28 Not Available [facility] ([facility]) [address] [facility] [place], [address], 07/20/2014 08:55:29 07/20/19 15 07/20/2014 CBC hemoglobin 14.2 g/dL 11.1-1 5.9 Not Available [facility] ([facility]) [address] [facility] [place], [address], 07/20/2014 08:55:29 07/20/1907/20/2014 CBC hematocrit 42.8 % 34.0-4 6.6 Not Available [facility] ([facility]) [address] [facility] [place], [address], 07/20/2014 08:55:29 07/20/1907/20/2014 CBC MCV 92 fL 79-97 Not Available [facility] ([facility]) [address] [facility] [place], [address], 07/20/2014 08:55:29 07/20/1907/20/2014 CBC MCH 30.6 pg 26.6-3 3.0 Not Available [facility] ([facility]) [address] [facility] [place], [address], 07/20/2014 08:55:29 07/20/1907/20/2014 CBC MCHC 33.2 g/dL 31.5-3 5.7 Not Available [facility] ([facility]) [address] [place], [address], 07/20/2014 08:55:29 07/20/19 15 07/20/2014 CBC RDW 13.9 % 12.3-1 5.4 Not Available [facility] ([facility]) [address] [facility] [place], [address], 07/20/2014 08:55:29 07/20/19 15 07/20/2014 CBC platelets 241 x10e3 /uL 150-37 9 Not Available [facility] ([facility]) [address] [facility] [place], [address], 07/20/2014 08:55:29 07/20/1907/20/2014 lipid panel , serum cholesterol, total 225 mg/dL 100-19 9 high Not Available [facility] ([facility]) [address] [facility] [place], [address], 07/20/2014 08:55:30 07/20/1907/20/2014 lipid panel , serum triglyceride s 65 mg/dL 0-149 Not Available [facility] ([facility]) [address] [facility] [place], [address], 07/20/2014 08:55:30 07/20/1907/20/2014 lipid panel , serum HDL cholesterol 69 mg/dL >39 ACCOR DING TO ATP-I II GUIDE LINES , HDL-C >59 MG/DL IS CONSI DERED A NEGAT SWETA RISK FACTO R FOR CHD. Not Available [facility] ([facility]) [address] [facility] [place], [address], 07/20/2014 08:55:30 07/20/1907/20/2014 lipid panel , serum VLDL cholesterol jacquelyn 13 mg/dL 5-40 Not Available [facility] ([facility]) [address] [place], [address], 07/20/2014 08:55:30 07/20/19 15 07/20/2014 lipid panel , serum LDL cholesterol calc 143 mg/dL 0-99 high Not Available [facility] ([facility]) [address] [place], [address], 07/20/2014 08:55:30 07/20/19 15 07/20/2014 iron + total iron- octavio ng capac ity (TIBC ), serum iron bind.cap.(TI BC) 284 ug/dL 250-45 0 Not Available [facility] ([facility]) [address] [place], [address], 07/20/2014 08:55:30 07/20/19 15 07/20/2014 iron + total iron- octavio ng capac ity (TIBC ), serum UIBC 202 ug/dL 150-37 5 Not Available [facility] ([facility]) [address] [place], [address], 07/20/2014 08:55:30 07/20/19 15 07/20/2014 iron + total iron- octavio ng capac ity (TIBC ), serum iron, serum 82 ug/dL 35-155 Not Available [facility] ([facility]) [address] [place], [address], 07/20/2014 08:55:30 07/20/1907/20/2014 iron + total iron- octavio ng capac ity (TIBC ), serum iron saturation 29 % 15-55 Not Available [facility] ([facility]) [address] [place], [address], 07/20/2014 08:55:30 07/20/19 15 07/20/2014 TSH, serum or plasm a TSH 1.810 uIU/m L 0.450- 4.500 Not Available [facility] ([facility]) [address] [facility], [place], [address], 07/20/2014 08:55:31 07/20/19 15 07/20/2014 ming tin, serum or plasm a ferritin, serum 162 NG/mL 15-150 high Not Available [facility] ([facility]) [address] [facility], [place], [address], 07/20/2014 08:55:31 12/15/19 15 12/15/2014 HIV (1+O+ 2) Ab, serum HIV 1/O/2 abs-index value <1.00 <1.00 INDEX VALUE : SPECI MEN REACT IVITY RELAT SWETA TO THE NEGAT SWETA CUTOF F. Not Available [facility] ([facility]) [address] [facility], [place], [address], 12/15/2014 09:16:36 12/15/19 15 12/15/2014 HIV (1+O+ 2) Ab, serum HIV 1/O/2 abs, qual NON REACTI VE non reacti ve Not Available [facility] ([facility]) [address] [facility], [place], [address], 12/15/2014 09:16:36 12/15/19 15 12/14/2014 hepat itis C Ab, signa l-to- cutof f, serum or plasm a comment: COMMEN T NON REACT SWETA HCV ANTIB SUMEET SCREE N IS CONSI STENT WITH NO HCV INFEC TION, UNLES S RECEN T INFEC TION IS SUSPE CTED OR OTHER EVIDE NCE EXIST S TO INDIC ATE HCV INFEC TION. Not Available [facility] ([facility]) [address] [facility], [place], [address], 12/15/2014 09:16:36 12/15/19 15 12/15/2014 hepat itis C Ab, signa l-to- cutof f, serum or plasm a HCV Ab 0.1 S/co_ ratio 0.0-0. 9 Not Available [facility] ([facility]) [address] [facility], [place], [address], 12/15/2014 09:16:36 12/15/19 15 12/15/2014 RPR (rapi d plasm a reagi n), serum RPR NON REACTI VE non reacti ve Not Available [facility] ([facility]) [address] [facility], [place], [address], 12/15/2014 09:16:37 12/15/19 15 12/15/2014 HBsAg (hepa titis B surfa ce Ag), EIA, serum HBsAg screen NEGATI VE negati ve Not Available [facility] ([facility]) [address] [facility], [place], [address], 12/15/2014 09:16:37 12/15/19 15 12/19/2014 pap, IG + CT/NG /TV + refle x HPV (16+1 8) chlamydia, nuc. acid amp NEGATI VE negati ve Not Available [facility] ([facility]) [address] [place], [address], 12/21/2014 16:41:30 12/15/19 15 12/19/2014 pap, IG + CT/NG /TV + refle x HPV (16+1 8) gonococcus, nuc. acid amp NEGATI VE negati ve Not Available [facility] ([facility]) [address] [place], [address], 12/21/2014 16:41:30 12/15/19 15 12/20/2014 pap, IG + CT/NG /TV + refle x HPV (16+1 8) diagnosis: COMMEN T NEGAT SWETA FOR INTRA EPITH ELIAL LESIO N AND MALIG NICOLLE . Not Available [facility] ([facility]) [address] [place], [address], 12/21/2014 16:41:30 12/15/19 15 12/20/2014 pap, IG + CT/NG /TV + refle x HPV (16+1 8) specimen adequacy: LISSETTE Pham SATIS FACTO RY FOR EVALU ATION . ENDOC ERVIC AL AND/O R SQUAM OUS METAP LASTI C CELLS (ENDO CERVI JACQUELYN COMPO NENT) ARE PRESE NT. Not Available [facility] ([facility]) [address] [facility], [place], [address], 12/21/2014 16:41:30 12/15/19 15 12/20/2014 pap, IG + CT/NG /TV + refle x HPV (16+1 8) clinician provided ICD9: LISSETTE Pham V72.3 1 ; TREYI TAMMI GYNEC OLOGI JACQUELYN EXAMI NATIO N Not Available [facility] ([facility]) [address] [place], [address], 12/21/2014 16:41:30 12/15/19 15 12/20/2014 pap, IG + CT/NG /TV + refle x HPV (16+1 8) performed by: ARTURO WRIGHT (ASCP ) Not Available [facility] ([facility]) [address] [place], [address], 12/21/2014 16:41:30 12/15/19 15 12/20/2014 pap, IG + CT/NG /TV + refle x HPV (16+1 8) . . Not Available [facility] ([facility]) [address] [place], [address], 12/21/2014 16:41:30 12/15/19 15 12/20/2014 pap, IG [...] TS DO OCCUR . Not Available [facility] ([facility]) [address] [facility], [place], [address], 12/21/2014 16:41:30 12/15/19 15 12/20/2014 pap, IG + CT/NG /TV + refle x HPV (16+1 8) test methodology: COMMEN T THIS LIQUI D BASED THINP REP(R ) PAP TEST WAS PEDRO PABLO TRUJILLO WITH THE USE OF AN IMAGE GUIDE José Miguel Valencia. Not Available [facility] ([facility]) [address] [facility], [place], [address], 12/21/2014 16:41:30 12/15/19 15 12/21/2014 pap, IG + CT/NG /TV + refle x HPV (16+1 8) HPV, high-risk NEGATI VE negati ve THIS HIGH- RISK HPV TEST DETEC TS THIRT EEN HIGH- RISK TYPES (16/1 8/31/ 33/35 /39/4 5/51/ 52/56 /58/5 ) WITHO UT DIFFE RENTI ATION . Not Available [facility] ([facility]) [address] [facility], [place], [address], 12/21/2014 16:41:30 12/15/19 15 12/21/2014 pap, IG + CT/NG /TV + refle x HPV (16+1 8) trich vag by GUNJAN NEGATI VE negati ve Not Available [facility] ([facility]) [address] [facility], [place], [address], 12/21/2014 16:41:30 07/22/19 15 07/18/2014 MAMMO , pedro pablo reynolds, digit al, bilat eral No observ ation record ed. [email or web address] Not Available 2014 14:48:50 01/20/20 15 01/17/2015 echoc ardio gram No observ ation record ed. nsuthan Not Available 2014 14:47:25 Result Notes None recorded. Problems No Known Problems Procedures Surgical History Date Name Laterality Status Provider Name and Address Organization Details Recorded Time 12/15/19 15 Date of Last Pap Smear completed [facility] 12/29/2014 11:22:29 Appendectomy completed Aria ERIN Cabrera [facility] 06/28/2014 14:15:11 Arthroscopic Surgery completed Aria Deborah [facility] 06/28/2014 14:15:11 Tubal Ligation completed Arialori Cabrera [facility] 06/28/2014 14:15:11 Caesarean Section completed [place] Deborah [facility] 06/28/2014 14:15:11 Imaging Results Imaging Date Name Status LastModified by Organization Details LastModified Time 07/18/2014 MAMMO, screening, digital, bilateral completed [email or web address] Information not available 07/21/2014 14:48:50 01/17/2015 echocardiogram completed [email or web address] Informatio n not available 01/19/2015 14:47:25 Procedure Notes None recorded. Medical Equipment None Reported. Allergies Allergen ID Allergen Name Allergen Category Reaction Reaction Severity Criticality Documentation Date Start Date Code Code System Note Provider Name and Address Organization Details Recorded Time 45588 black walnut food other severe Not available 06/28/2014 07141 UNK black out Not Available Not Available Not Available Medications Not known to be on any medication Vitals Date Recorded Body weight Body height Body mass index (BMI) Systolic blood pressure Diastolic blood pressure Provider Name and Address Organization Details Last Updated DateTime 12/14/2014 89358.52 417 g 160.02 cm 25 kg/m2 128 mm[Hg] 80 mm[Hg] [facility] 5 09:28:38 Date Recorded Body height Body mass index (BMI) Body weight Systolic blood pressure Diastolic blood pressure Provider Name and Address Organization Details Last Updated DateTime 12/29/2014 160.02 cm 24.6 kg/m2 04755.98 0193 g 120 mm[Hg] 82 mm[Hg] [facility] 5 11:22:30 Date Recorded Respiratory rate Oxygen saturation Oxygen saturation in Arterial blood by Pulse oximetry Body weight Heart rate Body mass index (BMI) Body height Body temperature Systolic blood pressure Diastolic blood pressure Provider Name and Address Organization Details Last Updated DateTime 5 12 /min 100 % 100 % 05745.5 02611 g 76 /min 24.3 kg/m2 160.02 cm 98 [degF] 110 mm[Hg] 80 mm[Hg] Aria Cabrera [place] - [facility] 5 14:15:11 Social History Question Answer Notes LastModified by Organizat ion Details LastModified Time Tobacco Smoking Status Former Smoker Quit 1998 Daphney Purvis [place], [place] - [facility] 12/14/2014 10:07:48 What Is Your Level [...] completed Sherman Dial MD Attn: Accounting[address] [place], [address], [facility] 06/28/2014 14:52:07 Past Encounters Encounter ID Performer Location Encounter Start Date Encounter Closed Date Diagnosis/Indication Diagnosis SNOMED-CT Code Diagnosis ICD10 Code Diagnosis Note [id number] [facility] ([facility]) [address] [place] [address] 06/28/2014 13:34:02 06/28/2014 15:51:12 Adult health examination 322406649 very small umbilical hernia-obs erve for now Family his tory of hemochromatosis 975234162 Screening for malignant neoplasm of colon 924488085 Screening mammography [id number] [facility] ([facility] [employer] [facility]) [address] [place] [address] 12/14/2014 09:01:31 12/14/2014 10:48:14 Gynecologic examination 02773022 Normal female exam. Pt. gets fasting blood work with Dr. Baires. Venereal d isease screening 311008874 RTO 2 weeks for results Screening for malignant neoplasm of breast 626036696 Normal mammogram done 06/2014 Screening for malignant neoplasm of colon 074670934 Pt. had a normal colonoscop y 07/2014 [id number] ERIN Corea ([employer]) [address] [place] [address] 12/29/2014 11:10:49 12/29/2014 12:26:00 Gynecologic examination 97514360 Pap was normal with negative hr-HPV, dwp. RTO PRN + 1 year for AE Venereal d isease screening 736455191 Vaginal culture and STD panel were completely [...] [place] Member ID Guarantor Name 06/28/2014 1 [employer] (MEDICAID HMO) Lalita Cannon [id number] 12/14/2014 1 [employer] (MEDICAID HMO) Lalita Cannon [id number] 12/29/2014 1 [employer] [employer] (MEDICAID HMO) Lalita Cannon [id number] Notes Date Note Type Note Provider Name and Address Organization Details Recorded Time 12/29/2014 text/html Pt. presents for results of pap and STD testing done at her AE. She has no complaints. Daphney Purvis [facility], [place] - [facility] 12/29/2014 12:42:01 OBGyn Episode Ob Episode Information Episode Created Date Number of Fetuses Patient Bloodtype Patient rh Status Prepregnancy Weight lbs Domestic Partner Domestic Partner Phone Father Name Coal Crusher Operator Status 12/15/19 15 1 CLOSED Fetus Data First Name Last Name Admitted to NICU Weight (g) Sex Living Outcome Pediatric Complications Fetus ID Race Codes Race Delivery Type 2948.34 8 F Full Term 51952 Moshe Calculation Initial Moshe Date Initial Exam [...] Domestic Partner Domestic Partner Phone Father Name Coal Crusher Operator Status 12/15/19 15 1 CLOSED Fetus Data First Name Last Name Admitted to NICU Weight (g) Sex Living Outcome Pediatric Complications Fetus ID Race Codes Race Delivery Type 3515.33 8 M Full Term 47405 Moshe Calculation Initial Moshe Date Initial Exam [...] Domestic Partner Domestic Partner Phone Father Name Coal Crusher Operator Status 12/15/19 15 1 CLOSED Fetus Data First Name Last Name Admitted to NICU Weight (g) Sex Living Outcome Pediatric Complications Fetus ID Race Codes Race Delivery Type Demise 61061 Moshe Calculation Initial Moshe Date Initial Exam [...] Domestic Partner Domestic Partner Phone Father Name Coal Crusher Operator Status 12/15/19 15 1 CLOSED Fetus Data First Name Last Name Admitted to NICU Weight (g) Sex Living Outcome Pediatric Complications Fetus ID Race Codes Race Delivery Type 4139.02 7 M Full Term 73765 Moshe Calculation Initial Moshe Date Initial Exam [...] Domestic Partner Domestic Partner Phone Father Name Coal Crusher Operator Status 12/15/19 15 1 CLOSED Fetus Data First Name Last Name Admitted to NICU Weight (g) Sex Living Outcome Pediatric Complications Fetus ID Race Codes Race Delivery Type 3005.04 7 M Full Term 62197 Moshe Calculation Initial Moshe Date Initial Exam [...] Domestic Partner Domestic Partner Phone Father Name Coal Crusher Operator Status 12/15/19 15 1 CLOSED Fetus Data First Name Last Name Admitted to NICU Weight (g) Sex Living Outcome Pediatric Complications Fetus ID Race Codes Race Delivery Type Ectopic 13901 Moshe Calculation Initial Moshe Date Initial Exam [...]
--- OUTSIDE RECORDS SUMMARY | 2024-07-12 16:21 | XMS_ITS | CONTINUITY OF CARE DOCUMENT ---
Author Name melvin charles Address Unknown Organization [facility] Address [address] [address] [address] [place] [address] Phone [phone] Care Team Providers Care Upper Inspector Name Role Phone Juan R Alaniz MD Unavailable [phone] JAYNE WHITLEY MD Unavailable [phone] JAYNE WHITLEY MD Unavailable PROBLEMS Condition Status Date Provider Notes Mitral valve prolapse active Juan R Valdez Chest pain-type to be determined active Re Alaniz MD ENCOUNTERS Date Type Provider Location Encounter Diag nosis - In-person encounter Office Visit Juan R Alaniz MD [facility] Office Chest pain-type to b e determinedMitral [...]
== END 2024-07-12 14:52 | disposition home or self-care (01) ==
PROVIDERS: PCP Nurse Practitioner Family; Visit Provider Nurse Practitioner Family
DX: I34.1 Nonrheumatic mitral (valve) prolapse (principal)
CPT/HCPCS: 93306

== ENCOUNTER 2024-11-01 23:03 | Emergency (ER) | payer OTHER, SELFPAY ==
[2024-11-01 23:03] VITALS: BP 150/86; PULSE 85; RESP 16; TEMP 36.8; O2SAT 97
--- OUTSIDE RECORDS SUMMARY | 2024-11-01 23:05 | XMS_ITS | Clinical Summary ---
Author Organization [facility] Address [facility] [place] [address] Care Team Providers Care Wall Taper Name Role Phone None, Provider MD Primary [...] 3:14 PM CDT Height 160 cm (5' 3) 01/11/2023 3:14 PM CDT Body Mass Index [...] Vaccines ( 1 - Tdap) 04/14/2012 04/13/2012 Pneumococcal Vaccine: 50+ Ye ars (1 of 1 - PCV) 2012 Zoster Vaccines (1 of 2) 2012 COVID-19 Vaccine (1 - 2023-2 5 season) 2023 RSV Immunization or 60+ Years (1 - [...] age to complete this topic Care Teams Wall Taper Relationship Specialty Start Date End Date None, Provider, MD PCP - General UNKNOWN PHYSICIAN SPECIALTY 04/10/22
--- OUTSIDE RECORDS SUMMARY | 2024-11-01 23:05 | XMS_ITS | Data Portability ---
Author Organization DIMITRI JADERodrigo Miller [facility] Address [address] [place] [address] Assessment No assessment recorded. Plan of Treatment Reminders Order Date Submit Date Provider Last Modified By Organization Details Last Modified Time Details Appointments None recorded. Lab pap, IG + CT/NG/TV + reflex HPV (16+18) 2014 015 [facility], [address] [place] [address], [address], [place], [address], 5 16:41:30 RPR (rapid plasma reagin), serum 2014 015 [facility], [address] [place] [address], [address], [place], [address], 5 09:16:37 HBsAg (hepatitis B surface Ag), EIA, serum 2014 015 [facility], [address] [place] [address], [address], [place], [address], 5 09:16:37 hepatitis C Ab, signal-to-c utoff, serum or plasma 2014 015 [facility], [address] [place] [address], [address], [place], [address], 5 09:16:36 HIV (1+O+2) Ab, serum 2014 015 [facility], [address] [place] [address], [address], [place], [address], 5 09:16:36 iron + total iron-bindin g capacity (TIBC), serum 2014 015 [facility], [address], [address], [place], [address], 5 08:55:30 ferritin, serum or plasma 2014 015 [facility], [address], [address], [place], [address], 5 08:55:31 CBC 2014 015 [email or web address] 1 [facility], [address], [address], [place], [address], 5 11:59:11 lipid panel, serum 2014 [facility], [address], [address], [place], [address], 5 11:59:11 TSH, serum or plasma 2014 015 [email or web address] 1 [facility], [address], [address], [place], [address], 5 11:59:11 CMP, serum or plasma 2014 015 [email or web address] 1 [facility], [address], [place], [address], 5 11:59:11 Referral gastroenter ologist referral 2014 015 [email or web address] Not available 5 10:13:39 Procedures None recorded. Surgeries None recorded. Imaging MAMMO, screening, digital, bilateral 2014 015 [email or web address] Not available 5 15:21:58 Medication Orders None recorded. Patient TargetsNo targets recorded. Patient Instructions Encounter Date Encounter Id Patient Instructions Last Modified By Organization Details Last Modified Time 06/28/2014 [id number] hemochromatosis: care instructions nsuthan Not available 06/28/2014 15:00:12 Take meds as prescribed Healthy diet/ exercise nsuthan Not available 06/28/2014 15:00:13 12/14/2014 [id number] learning about breast cancer screening [email or web address] Not available 12/14/2014 11:00:56 Reason for Referral Referring Physician: Ran Dial, Internal Medicine, Encounter Date: 06/28/2014 Results Created Date Observation Date Name Description Value Unit Range Abnormal Flag Note LastModifiedBy Organization Detail LastModifiedTime 07/20/19 15 07/20/2014 CMP, serum or plasm a glucose, serum 98 mg/dL 65-99 Not Available [facility] ([facility]) [address] [place], [address], 07/20/2014 08:55:29 07/20/1907/20/2014 CMP, serum or plasm a BUN 17 mg/dL 6-24 Not Available [facility] ([facility]) [address] [place], [address], 07/20/2014 08:55:29 07/20/1907/20/2014 CMP, serum or plasm a creatinine, serum 0.83 mg/dL 0.57-1 .00 Not Available [facility] ([facility]) [address] [place], [address], 07/20/2014 08:55:29 07/20/1907/20/2014 CMP, serum or plasm a eGFR if nonafricn AM 82 mL/mi n/1.7 3 >59 Not Available [facility] ([facility]) [address] [place], [address], 07/20/2014 08:55:29 07/20/19 15 07/20/2014 CMP, serum or plasm a eGFR if africn AM 94 mL/mi n/1.7 3 >59 Not Available [facility] ([facility]) [address] [facility] [place] [place], [address], 07/20/2014 08:55:29 07/20/1907/20/2014 CMP, serum or plasm a BUN/creatini ne ratio 20 9-23 Not Available [facility] ([facility]) [address] [facility] [place], [address], 07/20/2014 08:55:29 07/20/19 15 07/20/2014 CMP, serum or plasm a sodium, serum 141 mmol/ L 134-14 4 Not Available [facility] ([facility]) [address] [facility] [place], [address], 07/20/2014 08:55:29 07/20/19 15 07/20/2014 CMP, serum or plasm a potassium, serum 4.5 mmol/ L 3.5-5. 2 Not Available [facility] ([facility]) [address] [facility] [place], [address], 07/20/2014 08:55:29 07/20/1907/20/2014 CMP, serum or plasm a chloride, serum 101 mmol/ L 97-108 Not Available [facility] ([facility]) [address] [facility] [place], [address], 07/20/2014 08:55:29 07/20/1907/20/2014 CMP, serum or plasm a carbon dioxide, total 24 mmol/ L 18-29 Not Available [facility] ([facility]) [address] [facility] [place], [address], 07/20/2014 08:55:29 07/20/1907/20/2014 CMP, serum or plasm a calcium, serum 9.2 mg/dL 8.7-10 .2 Not Available [facility] ([facility]) [address] [facility] [place], [address], 07/20/2014 08:55:29 07/20/1907/20/2014 CMP, serum or plasm a protein, total, serum 6.7 g/dL 6.0-8. 5 Not Available [facility] ([facility]) [address] [facility] [place], [address], 07/20/2014 08:55:29 07/20/19 15 07/20/2014 CMP, serum or plasm a albumin, serum 4.7 g/dL 3.5-5. 5 Not Available [facility] ([facility]) [address] [facility] [place], [address], 07/20/2014 08:55:29 07/20/1907/20/2014 CMP, serum or plasm a globulin, total 2.0 g/dL 1.5-4. 5 Not Available [facility] ([facility]) [address] [place], [address], 07/20/2014 08:55:29 07/20/1907/20/2014 CMP, serum or plasm a A/G ratio 2.4 1.1-2. 5 Not Available [facility] ([facility]) [address] [place], [address], 07/20/2014 08:55:29 07/20/1907/20/2014 CMP, serum or plasm a bilirubin, total <0.2 mg/dL 0.0-1. 2 Not Available [facility] ([facility]) [address] [place], [address], 07/20/2014 08:55:29 07/20/1907/20/2014 CMP, serum or plasm a alkaline phosphatase, S 86 IU/L 39-117 Not Available [facility] ([facility]) [address] [place], [address], 07/20/2014 08:55:29 07/20/1907/20/2014 CMP, serum or plasm a AST (SGOT) 22 IU/L 0-40 Not Available [facility] ([facility]) [address] [facility], [place], [address], 07/20/2014 08:55:29 07/20/19 15 07/20/2014 CMP, serum or plasm a ALT (SGPT) 20 IU/L 0-32 Not Available [facility] ([facility]) [address] [facility], [place], [address], 07/20/2014 08:55:29 07/20/19 15 07/20/2014 CBC WBC 6.3 x10e3 /uL 3.4-10 .8 Not Available [facility] ([facility]) [address] [facility] [place], [address], 07/20/2014 08:55:29 07/20/19 15 07/20/2014 CBC RBC 4.64 x10e6 /uL 3.77-5 .28 Not Available [facility] ([facility]) [address] [facility], [place], [address], 07/20/2014 08:55:29 07/20/19 15 07/20/2014 CBC hemoglobin 14.2 g/dL 11.1-1 5.9 Not Available [facility] ([facility]) [address] [facility], [place], [address], 07/20/2014 08:55:29 07/20/1907/20/2014 CBC hematocrit 42.8 % 34.0-4 6.6 Not Available [facility] ([facility]) [address] [facility] [place], [address], 07/20/2014 08:55:29 07/20/1907/20/2014 CBC MCV 92 fL 79-97 Not Available [facility] ([facility]) [address] [facility] [place], [address], 07/20/2014 08:55:29 07/20/19 15 07/20/2014 CBC MCH 30.6 pg 26.6-3 3.0 Not Available [facility] ([facility]) [address] [place], [address], 07/20/2014 08:55:29 07/20/19 15 07/20/2014 CBC MCHC 33.2 g/dL 31.5-3 5.7 Not Available [facility] ([facility]) [address] [place], [address], 07/20/2014 08:55:29 07/20/19 15 07/20/2014 CBC RDW 13.9 % 12.3-1 5.4 Not Available [facility] ([facility]) [address] [facility], [address], 07/20/2014 08:55:29 07/20/19 15 07/20/2014 CBC platelets 241 x10e3 /uL 150-37 9 Not Available [facility] ([facility]) [address] [facility] [place], [address], 07/20/2014 08:55:29 07/20/19 15 07/20/2014 lipid panel , serum cholesterol, total 225 mg/dL 100-19 9 high Not Available [facility] ([facility]) [address] [facility] [place], [address], 07/20/2014 08:55:30 07/20/19 15 07/20/2014 lipid panel , serum triglyceride s 65 mg/dL 0-149 Not Available [facility] ([facility]) [address] [facility] [place], [address], 07/20/2014 08:55:30 07/20/19 15 07/20/2014 lipid panel , serum HDL cholesterol 69 mg/dL >39 ACCOR DING TO ATP-I II GUIDE LINES , HDL-C >59 MG/DL IS CONSI DERED A NEGAT SEWTA RISK FACTO R FOR CHD. Not Available [facility] ([facility]) [address] [facility] [place], [address], 07/20/2014 08:55:30 07/20/19 15 07/20/2014 lipid panel , serum VLDL cholesterol jacquelyn 13 mg/dL 5-40 Not Available [facility] ([facility]) [address] [place], [address], 07/20/2014 08:55:30 07/20/19 15 07/20/2014 lipid panel , serum LDL cholesterol calc 143 mg/dL 0-99 high Not Available [facility] ([facility]) [address] [place], [address], 07/20/2014 08:55:30 07/20/19 15 07/20/2014 iron + total iron- octavio ng capac ity (TIBC ), serum iron bind.cap.(TI BC) 284 ug/dL 250-45 0 Not Available [facility] ([facility]) [address] [place], [address], 07/20/2014 08:55:30 07/20/19 15 07/20/2014 iron + total iron- octavio ng capac ity (TIBC ), serum UIBC 202 ug/dL 150-37 5 Not Available [facility] ([facility]) [address] [place], [address], 07/20/2014 08:55:30 07/20/1907/20/2014 iron + total iron- octavio ng capac ity (TIBC ), serum iron, serum 82 ug/dL 35-155 Not Available [facility] ([facility]) [address] [place], [address], 07/20/2014 08:55:30 07/20/1907/20/2014 iron + total iron- octavio ng capac ity (TIBC ), serum iron saturation 29 % 15-55 Not Available [facility] ([facility]) [address] [place], [address], 07/20/2014 08:55:30 07/20/19 15 07/20/2014 TSH, serum or plasm a TSH 1.810 uIU/m L 0.450- 4.500 Not Available [facility] ([facility]) [address] [facility], [place], [address], 07/20/2014 08:55:31 07/20/19 15 07/20/2014 ming tin, serum or plasm a ferritin, serum 162 NG/mL 15-150 high Not Available [facility] ([facility]) [address] [facility], [place], [address], 07/20/2014 08:55:31 12/15/19 15 12/15/2014 HIV (1+O+ 2) Ab, serum HIV 1/O/2 abs-index value <1.00 <1.00 INDEX VALUE : SPECI MEN REACT IVITY RELAT SWETA TO THE NEGAT SWETA CUTOF F. Not Available [facility] ([facility]) [address] [facility], [place], [address], 12/15/2014 09:16:36 12/15/19 15 12/15/2014 HIV (1+O+ 2) Ab, serum HIV 1/O/2 abs, qual NON REACTI VE non reacti ve Not Available [facility] ([facility]) [address] [facility], [place], [address], 12/15/2014 09:16:36 12/15/19 15 12/14/2014 hepat itis C Ab, signa l-to- cutof f, serum or plasm a comment: COMMEN T NON REACT SWETA HCV ANTIB SUMEET SCREE N IS CONSI STENT WITH NO HCV INFEC TION, UNLES S RECEN T INFEC TION IS SUSPE CTED OR OTHER EVIDE NCE EXIST S TO INDIC ATE HCV INFEC TION. Not Available [facility] ([facility]) [address] [facility], [place], [address], 12/15/2014 09:16:36 12/15/19 15 12/15/2014 hepat itis C Ab, signa l-to- cutof f, serum or plasm a HCV Ab 0.1 S/co_ ratio 0.0-0. 9 Not Available [facility] ([facility]) [address] [facility], [place], [address], 12/15/2014 09:16:36 12/15/19 15 12/15/2014 RPR (rapi d plasm a reagi n), serum RPR NON REACTI VE non reacti ve Not Available [facility] ([facility]) [address] [facility], [place], [address], 12/15/2014 09:16:37 12/15/19 15 12/15/2014 HBsAg (hepa titis B surfa ce Ag), EIA, serum HBsAg screen NEGATI VE negati ve Not Available [facility] ([facility]) [address] [facility], [place], [address], 12/15/2014 09:16:37 12/15/19 15 12/19/2014 pap, IG + CT/NG /TV + refle x HPV (16+1 8) chlamydia, nuc. acid amp NEGATI VE negati ve Not Available [facility] ([facility]) [address] [place], [address], 12/21/2014 16:41:30 12/15/19 15 12/19/2014 pap, IG + CT/NG /TV + refle x HPV (16+1 8) gonococcus, nuc. acid amp NEGATI VE negati ve Not Available [facility] ([facility]) [address] [place], [address], 12/21/2014 16:41:30 12/15/19 15 12/20/2014 pap, IG + CT/NG /TV + refle x HPV (16+1 8) diagnosis: COMMEN T NEGAT SWETA FOR INTRA EPITH ELIAL LESIO N AND MALIG NICOLLE . Not Available [facility] ([facility]) [address] [place], [address], 12/21/2014 16:41:30 12/15/19 15 12/20/2014 pap, IG + CT/NG /TV + refle x HPV (16+1 8) specimen adequacy: LISSETTE Pham SATIS FACTO RY FOR EVALU ATION . ENDOC ERVIC AL AND/O R SQUAM OUS METAP LASTI C CELLS (ENDO CERVI JACQUELYN COMPO NENT) ARE PRESE NT. Not Available [facility] ([facility]) [address] [facility], [place], [address], 12/21/2014 16:41:30 12/15/19 15 12/20/2014 pap, IG + CT/NG /TV + refle x HPV (16+1 8) clinician provided ICD9: LISSETTE Pham V72.3 1 ; WALTER CADENA GYNEC OLOGI JACQUELYN EXAMI NATIO N Not Available [facility] ([facility]) [address] [place], [address], 12/21/2014 16:41:30 12/15/19 15 12/20/2014 pap, IG + CT/NG /TV + refle x HPV (16+1 8) performed by: LISSETTE SILVA CYTOAnkit Pham (ASCP ) Not Available [facility] ([facility]) [address] [facility], [place], [address], 12/21/2014 16:41:30 12/15/19 15 12/20/2014 pap, IG + CT/NG /TV + refle x HPV (16+1 8) . . Not Available [facility] ([facility]) [address] [place], [address], 12/21/2014 16:41:30 12/15/19 15 12/20/2014 pap, IG [...] TS DO OCCUR . Not Available [facility] ([facility]) [address] [facility], [place], [address], 12/21/2014 16:41:30 12/15/19 15 12/20/2014 pap, IG + CT/NG /TV + refle x HPV (16+1 8) test methodology: COMMEN T THIS LIQUI D BASED THINP REP(R ) PAP TEST WAS PEDRO PABLO TRUJILLO WITH THE USE OF AN IMAGE GUIDE José Miguel Valencia. Not Available [facility] ([facility]) [address] [facility], [place], [address], 12/21/2014 16:41:30 12/15/19 15 12/21/2014 pap, IG + CT/NG /TV + refle x HPV (16+1 8) HPV, high-risk NEGATI VE negati ve THIS HIGH- RISK HPV TEST DETEC TS THIRT EEN HIGH- RISK TYPES (16/1 8/31/ 33/35 /39/4 5/51/ 52/56 /58/5 ) WITHO UT DIFFE RENTI ATION . Not Available [facility] ([facility]) [address] [facility], [place], [address], 12/21/2014 16:41:30 12/15/19 15 12/21/2014 pap, IG + CT/NG /TV + refle x HPV (16+1 8) trich vag by GUNJAN NEGATI VE negati ve Not Available [facility] ([facility]) [address] [facility], [place], [address], 12/21/2014 16:41:30 07/22/19 15 07/18/2014 MAMMO , pedro pablo reynolds, digit al, bilat eral No observ ation record ed. [email or web address] Not Available 2014 14:48:50 01/20/20 15 01/17/2015 echoc ardio gram No observ ation record ed. [email or web address] Not Available 2014 14:47:25 Result Notes None recorded. Problems No Known Problems Procedures Surgical History Date Name Laterality Status Provider Name and Address Organization Details Recorded Time 12/15/19 15 Date of Last Pap Smear completed Gavi Lopez [facility] 12/29/2014 11:22:29 Appendectomy completed Aria Cabrera MA [facility] 06/28/2014 14:15:11 Arthroscopic Surgery completed Aria Cabrera MA [facility] 06/28/2014 14:15:11 Tubal Ligation completed Aria Cabrera MA [facility] 06/28/2014 14:15:11 Caesarean Section completed Aria Cabrera MA [facility] 06/28/2014 14:15:11 Imaging Results None recorded. Procedure Notes None recorded. Medical Equipment None Reported. Allergies Allergen ID Allergen Name Allergen Category Reaction Reaction Severity Criticality Documentation Date Start Date Code Code System Note Provider Name and Address Organization Details Recorded Time 07940 black walnut food other severe Not available 06/28/2014 84805 UNK black out Aria Cabrera MA null, [facility] 5 14:15:11 Medications Not known to be on any medication Vitals Date Recorded Respiratory rate Oxygen saturation Oxygen saturation in Arterial blood by Pulse oximetry Body weight Heart rate Body mass index (BMI) Body height Body temperature Systolic And Diastolic Provider Name and Address Organization Details Last Updated DateTime 5 12 /min 100 % 100 % 60578.5 07143 g 76 /min 24.3 kg/m2 160.02 cm 98 [degF] 110/80 mm[Hg] Aria Cabrera MA [facility] 5 14:15:11 Date Recorded Body weight Body height Body mass index (BMI) Systolic And Diastolic Provider Name and Address Organization Details Last Updated DateTime 12/14/2014 76186.524 17 g 160.02 cm 25 kg/m2 128/80 mm[Hg] [facility] 12/14/2014 09:28:38 Date Recorded Body height Body mass index (BMI) Body weight Systolic And Diastolic Provider Name and Address Organization Details Last Updated DateTime 12/29/2014 160.02 cm 24.6 kg/m2 32108.980 193 g 120/82 mm[Hg] [facility] 12/29/2014 11:22:30 Social History Question Answer Notes LastModified by Organizat ion Details LastModified Time Tobacco Smoking Status Former Smoker Quit 1998 Daphney Purvis [facility], [place] - [place] 12/14/2014 10:07:48 Is Blood Transfusion Acceptable In An Emergency? Yes Information not available 12/14/2014 What Is Your Level Of Caffeine Consumption? Heavy Information not available 12/14/2014 How Much Tobacco Do You Chew? None Information not available 12/14/2014 What Type Of [...] Functional Status Question Answer Note LastModified by Organizat ion Details LastModified Time What is your level of alcohol consumption? 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 Moderate Information [...] Medical History Condition Response Heart Problems Y Headaches Y Arthritis Y Gynecological History Statement/Question Response Abnormal Pap [...] completed Sherman Dial MD Attn: Accounting[address] [place], [address], [facility] - [facility] 06/28/2014 14:52:07 Past Encounters Encounter ID Performer Location Encounter Start Date Encounter Closed Date Diagnosis/Indication Diagnosis SNOMED-CT Code Diagnosis ICD10 Code Diagnosis Note [id number] [facility] [address] [place] [address] 06/28/2014 13:34:02 06/28/2014 15:51:12 Adult health examination 597637494 very small umbilical hernia-obs erve for now Family his tory of hemochromatosis 892278373 Screening for malignant neoplasm of colon 518458451 Screening mammography [id number] MD Ghulam De Leon ([facility]) [address] [place] [address] 12/14/2014 09:01:31 12/14/2014 10:48:14 Gynecologic examination 55194845 Normal female exam. Pt. gets fasting blood work with Dr. Baires. Venereal d isease screening 396674621 RTO 2 weeks for results Screening for malignant neoplasm of breast 939732554 Normal mammogram done 06/2014 Screening for malignant neoplasm of colon 389477816 Pt. had a normal colonoscop y 07/2014 [id number] Daphney Purvis MD [facility] (NEWS COMMENTATOR) [address] [place] [address] 12/29/2014 11:10:49 12/29/2014 12:26:00 Gynecologic examination 53149774 Pap was normal with negative hr-HPV, dwp. RTO PRN + 1 year for AE Venereal d isease screening 186231028 Vaginal culture and STD panel were completely negative. Individual test results d/w pt. Sample condoms given. Health Concerns Section Related Observation LastModified by Organization Detai ls LastModified Time None Recorded Concern Status LastModified by Organization Details LastModified Time None Recorded Advance Directives Directive None Recorded Payers Insurance Date Sequence Insurance Name Policy Number Policy [place] Covered Member ID [place] Member ID Guarantor Name 06/18/2015 1 [facility] (MEDICAID O) Lalita Cannon [id number] 06/18/2015 1 [place] [facility] Lalita Cannon [id number] Notes Date Note Type Note Provider Name and Address Organization Details Recorded Time 12/29/2014 text/html Pt. presents for results of pap and STD testing done at her AE. She has no complaints. Daphney Purvis [facility] [place] [facility] 12/29/2014 12:42:01 OBGyn Episode Ob Episode Information Episode Created Date Number of Fetuses Patient Bloodtype Patient rh Status Prepregnancy Weight lbs Domestic Partner Domestic Partner Phone Father Name Commission Associate Status 12/15/19 15 1 CLOSED Fetus Data First Name Last Name Admitted to NICU Weight (g) Sex Living Outcome Pediatric Complications Fetus ID Race Codes Race Delivery Type 2948.34 8 F Full Term 34593 Moshe Calculation Initial Moshe Date Initial Exam [...] Domestic Partner Domestic Partner Phone Father Name Commission Associate Status 12/15/19 15 1 CLOSED Fetus Data First Name Last Name Admitted to NICU Weight (g) Sex Living Outcome Pediatric Complications Fetus ID Race Codes Race Delivery Type 3515.33 8 M Full Term 67392 Moshe Calculation Initial Moshe Date Initial Exam [...] Domestic Partner Domestic Partner Phone Father Name Commission Associate Status 12/15/19 15 1 CLOSED Fetus Data First Name Last Name Admitted to NICU Weight (g) Sex Living Outcome Pediatric Complications Fetus ID Race Codes Race Delivery Type Demise 83426 Moshe Calculation Initial Moshe Date Initial Exam [...] Domestic Partner Domestic Partner Phone Father Name Commission Associate Status 12/15/19 15 1 CLOSED Fetus Data First Name Last Name Admitted to NICU Weight (g) Sex Living Outcome Pediatric Complications Fetus ID Race Codes Race Delivery Type 4139.02 7 M Full Term 31394 Moshe Calculation Initial Moshe Date Initial Exam [...] Domestic Partner Domestic Partner Phone Father Name Commission Associate Status 12/15/19 15 1 CLOSED Fetus Data First Name Last Name Admitted to NICU Weight (g) Sex Living Outcome Pediatric Complications Fetus ID Race Codes Race Delivery Type 3005.04 7 M Full Term 14491 Moshe Calculation Initial Moshe Date Initial Exam [...] Domestic Partner Domestic Partner Phone Father Name Commission Associate Status 12/15/19 15 1 CLOSED Fetus Data First Name Last Name Admitted to NICU Weight (g) Sex Living Outcome Pediatric Complications Fetus ID Race Codes Race Delivery Type Ectopic 82348 Moshe Calculation Initial Moshe Date Initial Exam [...]
--- OUTSIDE RECORDS SUMMARY | 2024-11-01 23:05 | XMS_ITS | Data Portability ---
Author Organization [facility] [place] Address [address] [place] [address] Assessment Encounter Date Assessment Date Assessment LastModified by Organization Details LastModified Time 03/01/2024 03/01/2024 Annual gynecological exam performed. Patient will come back in a year unless there are new symptoms. [email or web address] Not available 03/01/2024 12:53:13 Plan of Treatment Reminders Order Date Submit Date Provider Last Modified By Organization Details Last Modified Time Details Appointments None recorded. Lab None recorded. Referral None recorded. Procedures None recorded. Surgeries None recorded. Imaging DEXA, axial skeleton + vertebral fracture assessment 2023 [facility], [address], [facility] [address], [place], [address], 5 05:01:06 MAMMO, screening, digital, bilateral 2023 024 [facility], [address], [facility] [address], [place], [address], 5 05:01:06 Medication Orders None recorded. Patient TargetsNo targets recorded. Patient InstructionsNo instructions recorded. Reason for Referral None Reported. Results Created Date Observation Date Name Description Value Unit Range Abnormal Flag Note LastModifiedBy Organization Detail LastModifiedTime 03/01/20 24 03/01/2024 IMAGE GUIDE D PAP AND HPV REGAR DLESS image guided Pap, HPV regardless of Pap result SEE RESULT S BELOW CASE REPOR T: Cytol ogy Gynec ologi jacquelyn Repor t Case: [id number] Autho rizin g Provi pepe: Disha Hood, RADHA Rosales cted: 03/01 1453 Order ing Locat ion: [place] Patho logjaen Recei fidel: 03/02 0827 First Leonid n: Darleen Aguilera, CT Speci men: Leonid reynolds Pap - Image d, Cervi x STATE MENT OF ADEQU ACY: Satis facto ry for evalu ation Trans forma tion zone compo nent canno t be defin itive ly ident ified due to the prese nce of atrop hy or other hormo nal mejia es ----- ----- ----- ----- ----- ----- ----- ----- ----- ----- ----- ----- ----- ----- ----- ----- ----- ---- FINAL DIAGN OSIS: Negat maryellen for Intra epith elial Lesdaria corea or Olvin sorto (NIL) . Atrop hic cell elyse marquez. Elect leonidas juarez jacy d by Darleen Aguilera, CT on 03/11 at 12:35 PM ----- ----- ----- ----- ----- ----- ----- ----- ----- ----- ----- ----- ----- ----- ----- ----- ----- ---- HPV RESUL TS: HPV mRNA E6/E7 : No HPV mRNA Detec pavan NOTE: This high risk HPV mRNA assay detec ts fourt een high- risk HPV types (16, 18, 31, 33, 35, 39, 45, 51, 52, 56, 58, 59, 66, 68) witho ut diffe renti ation . COMME NT: This speci men was revie wed by a Cytot echno logis t and/o r Patho logis t (as indic ated in this repor t) after evalu ation using the Thinp rep Imagi ng Syste m. CLINI JACQUELYN INFOR MATIO N: Menst rual Statu s: LMP (if appli cable ): Clini jacquelyn Histo ry/Pr eviou s Pap: Type of Neopl dat (if appli cable ): Signi fican t Clini jacquelyn Findi ngs: Other Histo ry: Hormo farida (if appli cable ): PAP EDUCA ESEQUIEL L NOTE: The Pap Test is a scree rodolfo test with an inher ent false negat maryellen rate. Liqui d-bas ed sampl ing may decre ase, but will not elimi elizabeth, false negat maryellen resul ts. A negat maryellen resul t does not precl ude the prese nce and/o r devel opmen t of disea se, since the prese nce of abnor mal cells in the sampl e depen ds on the locat ion of the lesio n and sampl ing techn ique. Adin nued regul ar scree rodolfo is the best metho d of cance r preve ntion . If repor pavan cytol ogic findi ng do not corre late with physi jacquelyn and/o r histo rical findi ngs, furth er inves tigat ion is recom araceli d, as clini oumar nichols nted. Not Available [facility] (Lab) [address], [place], [address], 03/11/2024 13:38:50 Result Notes None recorded. Procedures Surgical History Date Name Laterality Status Provider Name and Address Organization Details Recorded Time 03/01/20 24 Date of Last Pap Smear completed Cathy Lacey [facility] 03/01/2024 12:55:26 02/18/20 00 section completed Cathy Lacey [facility] 03/01/2024 13:05:43 04/13/19 00 Tubal Ligation completed Cathyneo Lacey [facility] 03/01/2024 13:06:14 04/13/18 96 [facility]2024 13:07:09 06/23/18 95 section completed Cathy Lacey [facility] 03/01/2024 13:05:38 04/13/18 92 tuboplasty for sterilization reversal completed Cathy Lacey [facility] 03/01/2024 13:06:40 03/26/19 88 [facility] 03/01/2024 13:05:31 04/13/18 88 Tubal Ligation completed Cathyneo Lacey [facility] 03/01/2024 13:06:09 06/14/18 87 section completed Cathyneo Lacey [facility] 03/01/2024 13:05:24 04/13/18 80 Laparoscopy completed [facility] 03/01/2024 13:07:40 04/13/18 77 [facility] 03/01/2024 13:05:10 Imaging Results None recorded. Procedure Notes None recorded. Medical Equipment None Reported. Allergies Allergen ID Allergen Name Allergen Category Reaction Reaction Severity Criticality Documentation Date Start Date Code Code System Note Provider Name and Address Organization Details Recorded Time 21902 black walnut food Not available Not available Not available 03/01/2024 10482 UNK Cathy Lacey [facility] 12:54:41 Vitals Date Recorded Body height Body mass index (BMI) Body weight Systolic And Diastolic Provider Name and Address Organization Details Last Updated DateTime 03/01/2024 157.48 cm 29.6 kg/m2 67346.96 g 127/76 mm[Hg] Cathy Lacey [facility] 03/01/2024 12:54:21 Social History Question Answer Notes LastModified by Organizat ion Details LastModified Time Tobacco Smoking Status Former Smoker Cathy Lacey [facility] 03/01/2024 13:04:29 Are You Blind Or Do You Have Difficulty Seeing? No [email or web address] Information n ot available 03/01/2024 What Is Your Level Of Caffeine Consumption? Moderate [email or web address] Information not available 03/01/2024 In The 14 Days Before Symptom Onset, Have You Had Close Contact With A Laboratory-confirm ed COVID-19 While That Case Was Ill? No [email or web address] Information n ot available 03/01/2024 In The 14 Days Before Symptom Onset, Have You Had Close Contact With A Person Who Is Under Investigation For COVID-19 While That Person Was Ill? No [email or web address] Information not available 03/01/2024 Have You Been To An Area Known To Be High Risk For COVID-19? No [email or web address] Information not available 03/01/2024 Are You Deaf Or Do You Have Serious Difficulty Hearing? No [email or web address] Information not available 03/01/2024 What Type Of Diet Are You Following? REGULAR [email or web address] Information n ot available 03/01/2024 Have You Ever Been Counseled For Unhealthy Alcohol Use? No [email or web address] Information not available 03/01/2024 Do You Use Your Seat Belt Or Car Seat Routinely? Yes [email or web address] Information not available 03/01/2024 Do You Have Smoke And Carbon Monoxide Detectors In Your Home? Yes [email or web address] Information not available 03/01/2024 Do You Use Sunscreen Routinely? Yes [email or web address] Information not available 03/01/2024 Has Tobacco Cessation Counseling Been Provided? No [email or web address] Information not available 03/01/2024 Do You Have Difficulty Walking Or Climbing Stairs? No Information not available 03/01/2024 Sex: Unknown Functional Status Question Answer Note LastModified by Organizat ion Details LastModified Time Do you use any illicit or recreational drugs? No [email or web address] Information not available 03/01/2024 Do you or have you ever used any other forms of tobacco or nicotine? No [email or web address] Information not available 03/01/2024 What is your level of alcohol consumption? Occasional [email or web address] Information not available 03/01/2024 Are you able to walk? YESWOREST [email or web address] Information not available 03/01/2024 Are you able to care for yourself? Yes Information n ot available 03/01/2024 Do you have difficulty dressing or bathing? No [email or web address] Information not available 03/01/2024 What is your exercise level? Occasional [email or web address] Information not available 03/01/2024 Mental Status Question Answer Note LastModified by Organization D etails LastModified Time Do you feel stressed (tense, restless, nervous, or anxious, or unable to sleep at night)? [id number] Information not available 03/01/2024 Family History Relationship Description Onset Age of this Age Resolved Age Notes LastModified by Organization Details LastModified Time Maternal Grandfather Malignant tumor of colon Not available 03/01 13:00:51 Father Heart disease Not available 03/01 13:01:01 Maternal Grandmother Diabetes mellitus [email or web address] Not available 03/01 13:01:12 Maternal Grandmother Hypercholest erolemia [email or web address] Not available 03/01 13:01:51 Maternal Grandmother Hypertensive disorder [email or web address] Not available 03/01 13:02:20 Mother Hypercholest erolemia [email or web address] Not available 03/01 13:01:51 Mother Hypertensive disorder [email or web address] Not available 03/01 13:02:20 Mother Polyp of colon [email or web address] Not available 03/01 20:14:39 Sister Hypercholest erolemia [email or web address] Not available 03/01 13:01:51 Sister Hypertensive disorder [email or web address] Not available 03/01 13:02:20 Brother Hypercholest erolemia [email or web address] Not available 03/01 13:01:51 Maternal Aunt Hypertensive disorder [email or web address] Not available 03/01 13:02:20 Paternal Aunt Hemodynamic care [email or web address] Not available 03/01 13:03:27 Paternal Uncle Hemodynamic care [email or web address] Not available 03/01 13:03:27 Medical History Condition Response Allergies (Food, seasonal, environmental ) Y Other Y Drug/Latex Allergies/Reactions Y Blood Transfusion N Breast Cancer N Dermatologic Disorders N Lung Disease N Defects or Inherited Disease N Breast Problem N Gestational Diabetes N Hematologic disorders N Anesthesia Complications N History of STI N Deep Vein Thrombosis N Polycystic ovary syndrome N Anxiety Disorder N Autoimmune disease N Arthritis Y Infertility N Acid Reflux (GERD) Y History of abnormal pap N Cancer N Varicosities N Stroke N Neurologic/Epilepsy N Endometriosis N High Cholesterol Y Fibromyalgia N Headaches N Kidney Disease N Heart Problems N Thyroid Problems N Kidney or Bladder Problems N GI Problems N Eating Disorder N Anemia N Art (IVF or FET) N Psychiatric Illness N Ovarian Cancer N Diabetes N Pulmonary (TB, Asthma) N Hepatitis/Liver Disease N No Past Medical History N Eczema N Urinary Tract Infection N Abuse/Domestic Violence N Trauma/Violence N Depression/ depression N Heart Disease Y Pre-Eclampsia N Hypertension N Osteoporosis N Thrombophilias N Gynecological History Statement/Question Response Abnormal Pap N Date of Last Colonoscopy Date of Last Mammogram Date of LMP 04/13/2015 STIs/STDs N Date of DEXA bone scan Date of Last Pap Smear 03/01/2024 Current Control Method Tubal Ligat ion LMP Approximate Obstetrics History GPAL:G 5 P 4 0 1 4 Type Value Full Term 4 Living 4 Ectopics 1 Total 5 Past Encounters Encounter ID Performer Location Encounter Start Date Encounter Closed Date Diagnosis/Indication Diagnosis SNOMED-CT Code Diagnosis ICD10 Code Diagnosis Note [id number] ANAMARIA Sharpe [place] [address] [address] 03/01/2024 11:14:05 03/01/2024 17:22:26 Gynecologic examination 21867804 Z01.419 WWEpostmen opausalpap updateddec lined STI screenmamm ogram order givendexa order givencolon oscopy - obtaining order through PCP Take Calcium with Vitamin D daily.Do monthly self breast exams.It is advised to get annual flu shot in the fall and she could obtain at [facility] or [facility] take care clinic. If you haven't received the Tdap vaccine in the last 10 years you should obtain one as well.Have mammogram yearly, bone density every 2-3 years and colonoscop y every 5-10 years depending on findings and history.En hailee in regular exercise. Avoid tobacco and illicit drugs. This lifestyle behavior pattern will lead to less health conditions and longer life span. If BMI greater than 25 dietary consult advised.Qu estions have been answered. Patient appears to understand instructio ns, but if you have any further questions call or respond to this email Screening for malignant neoplasm of breast 810126912 Z12.39 Screening for osteoporosis 395527925 Z13.820 Health Concerns Section Related Observation LastModified by Organization Detai ls LastModified Time None Recorded Concern Status LastModified by Organization Details LastModified Time None Recorded Advance Directives Directive None Recorded Payers Insurance Date Sequence Insurance Name Policy Number Policy [place] Covered Member ID [place] Member ID Guarantor Name 03/05/2024 1 [place]: [facility] [place] [facility] Lalita Cannon [id number] Lalita Cannon 02/08/2024 1 *SELF PAY* Ba jm Cannon Notes Date Note Type Note Provider Name and Address Organization Details Recorded Time 4 text/html Annual Litigation Attorney Post-MenopausalReported bypatient.Menopausal Symptoms:no menopausal symptoms; normal vaginal lubrication Vaginal Bleeding:history of menopause having occurred; no history of post menopausal bleeding Urinary Symptoms:no hematuria; no incontinence; no nocturia; no urinary frequency Vulva:no genital lesion; no vulvar atrophy Vagina:normal vaginal discharge; no vaginal atrophy Breast:no breast lump; no nipple discharge; no breast pain Sexual Complaints:no sexual complaints Psychological Symptoms:no depression; no anxiety Preventive Measures:encourage regular mammograms starting age 40; encourage self breast examination; encourage regular exercise; encourage no tobacco useNotes:63yo WWEpostmenopausallast pap 2014no h/o abnormal papsmammogram last 2011dexa - none ANAMARIA Sharpe [address], [place], [address], [facility] 03/01/2024 15:57:19 OBGyn Episode Ob Episode Information Episode Created Date Number of Fetuses Patient Bloodtype Patient rh Status Prepregnancy Weight lbs Domestic Partner Domestic Partner Phone Father Name Pellet Preparation Operator Status 03/01/20 24 1 CLOSED Fetus Data First Name Last Name Admitted to NICU Weight (g) Sex Living Outcome Pediatric Complications Fetus ID Race Codes Race Delivery Type 2948.34 8 F Full Term 94914 Repeat Moshe Calculation Initial Moshe Date Initial Exam [...] Complications Tubal Sterilization Discharge Date Comments 0 38 Discharge Information Feeding Method Contraceptive Method Maternal HG B and HCT Levels Ob Episode Information Episode Created Date Number of Fetuses Patient Bloodtype Patient rh Status Prepregnancy Weight lbs Domestic Partner Domestic Partner Phone Father Name Pellet Preparation Operator Status 03/01/20 24 1 CLOSED Fetus Data First Name Last Name Admitted to NICU Weight (g) Sex Living Outcome Pediatric Complications Fetus ID Race Codes Race Delivery Type 3401.94 M Full Term 01459 Repeat Moshe Calculation Initial Moshe Date Initial Exam [...] Complications Tubal Sterilization Discharge Date Comments 5 40 Discharge Information Feeding Method Contraceptive Method Maternal HG B and HCT Levels Ob Episode Information Episode Created Date Number of Fetuses Patient Bloodtype Patient rh Status Prepregnancy Weight lbs Domestic Partner Domestic Partner Phone Father Name Pellet Preparation Operator Status 03/01/20 24 1 CLOSED Fetus Data First Name Last Name Admitted to NICU Weight (g) Sex Living Outcome Pediatric Complications Fetus ID Race Codes Race Delivery Type 3968.93 M Full Term 97983 Repeat Moshe Calculation Initial Moshe Date Initial Exam [...] Complications Tubal Sterilization Discharge Date Comments 8 38 Discharge Information Feeding Method Contraceptive Method Maternal HG B and HCT Levels Ob Episode Information Episode Created Date Number of Fetuses Patient Bloodtype Patient rh Status Prepregnancy Weight lbs Domestic Partner Domestic Partner Phone Father Name Pellet Preparation Operator Status 03/01/20 24 1 CLOSED Fetus Data First Name Last Name Admitted to NICU Weight (g) Sex Living Outcome Pediatric Complications Fetus ID Race Codes Race Delivery Type 4139.02 7 M Full Term 47790 Primary Moshe Calculation Initial Moshe Date Initial Exam [...] Complications Tubal Sterilization Discharge Date Comments 7 40 Discharge Information Feeding Method Contraceptive Method Maternal HG B and HCT Levels Ob Episode Information Episode Created Date Number of Fetuses Patient Bloodtype Patient rh Status Prepregnancy Weight lbs Domestic Partner Domestic Partner Phone Father Name Pellet Preparation Operator Status 03/01/20 24 1 CLOSED Fetus Data First Name Last Name Admitted to NICU Weight (g) Sex Living Outcome Pediatric Complications Fetus ID Race Codes Race Delivery Type Ectopic 96816 Moshe Calculation Initial Moshe Date Initial Exam [...] Post Complications Tubal Sterilization Discharge Date Comments 6 Discharge Information Feeding Method Contraceptive Method Maternal HG B and HCT Levels
--- NOTE | 2024-11-01 23:21 | ED.GENADULT ---
HPI - General Adult General Chief complaint: Dental/Oral Stated complaint: DENTAL PROBLEM Time Seen by Provider: 11/01/24 23:15 History of Present Illness HPI narrative: Lalita presented to the ED with pain in her upper left molar for a day. No fevers, dysphagia, or dyspnea. Related Data Allergies Allergy/AdvReac Type Severity Reaction Status Date / Time No Known Allergies Allergy Verified 07/13/24 13:11 Review of Systems Review of Systems: All systems reviewed & are unremarkable except as noted in HPI and below [facility] Past Medical History Medical History Exposure to STD Close exposure to 2019 novel coronavirus Leukocytosis Screening for malignant neoplasm of breast Recurrent UTI (urinary tract infection) Urinary symptom or sign History of kidney stones Tubal Mitral valve prolapse Closed fracture of finger (11/16/15) Hordeolum eyelid (12/06/12) Perimenopausal disorder (05/11/12) Plantar fasciitis (05/11/12) Surgical History Surgical History Hx of tubal ligation History of H/O tubal ligation H/O: section History of appendectomy Social History Social History Smoking packs per day: 1 Smoking cigarettes per day: 20.0 Years smoked: 30 Smoking pack-years: 30.00 Smoking status: Former smoker Alcohol intake: current Alcohol use details: social Substance use: never Substance use type: does not use Living arrangements: with family Additional living arrangements comments: with 2 sons Occupation/Education: occupation Additional occupation/education comments: self-employed. Gender identity (if verbalized by the patient): Female Spiritual care concerns: No Exam Const: General: cooperative, healthy appearing, comfortable, no acute distress, well developed, alert, awake and Physically active Orientation/consciousness: oriented to person, oriented to place and oriented to time HENMT: Head: normal to inspection, normocephalic and atraumatic Ears: hearing grossly normal bilaterally and external ears normal Face/Nose/Sinus: Normal external nose present Other: upper left molar had erythema, swelling and TTP at the base Eyes: General: appearance normal, both eyes and all related structures Periorbital: periorbital findings normal Sclera: sclerae normal Pupils: Equal, round and reactive pupils present Neck: Neck: normal visual inspection Chest: Chest palpation & inspection: normal inspection of the chest Resp: Effort & Inspection: normal respiratory effort, able to speak in complete sentences and no respiratory distress Cardio: Jugular venous distension: no JVD Skin: General skin exam: normal color and no rashes or lesions noted Neuro: General: oriented to person, oriented to place and oriented to time Cranial nerves: Yes Equal, round and reactive pupils present Extrem: General: normal to inspection Discharge Plan Discharge Clinical Impression: Dental infection Patient Disposition: Home Condition: Stable Instructions: Dental Abscess (ED) Patient Language: American Prescriptions: New amoxicillin-pot clavulanate 875-125 mg tablet 1 tablet PO Q12H Qty: 10 0RF Follow-up/Referrals: Kalina Ambriz APRN [Primary Care Provider] - Stand Alone Forms: Work/School Release IP
--- OUTSIDE RECORDS SUMMARY | 2024-11-01 23:49 | XMS_ITS | Clinical Summary ---
Author Organization [facility] Address [facility] [place] [address] Care Team Providers Care Favor Maker Name Role Phone None, Provider MD Primary [...] age to complete this topic Care Teams Favor Maker Relationship Specialty Start Date End Date None, Provider, MD PCP - General UNKNOWN PHYSICIAN SPECIALTY 04/10/22
== END 2024-11-01 23:57 | disposition home or self-care (01) ==
LOC: CHSED 23:48
PROVIDERS: Emergency Provider Family Medicine; PCP Nurse Practitioner Family
DX: K04.7 Periapical abscess without sinus (principal); Z87.891 Personal history of nicotine dependence
CPT/HCPCS: 99283; A9270